=== PATIENT | male | born 1950 | race Caucasian/White ===

== ENCOUNTER 2020-11-21 08:21 | Outpatient (REF) | payer MEDICARE, OTHER, SELFPAY ==
[2020-11-21 11:04] LABS: MANUAL DIFF FLAG NO
[2020-11-21 11:08] LABS: Basophils Percent Auto 0.8 % (0-2); Eosinophils Absolute Auto 0.3 X10*3/uL (0.0-0.4); Eosinophils Percent Auto 6.4 % (0-4); Hematocrit 40.7 % (42-52); Hemoglobin 13.6 g/dl (14.0-18.0); Imm Gran Abs Auto 0.01 X10*3/uL (0.00-0.03); Imm Gran Pct Auto 0.2 % (0.0-0.4); Lymphocytes Absolute Auto 1.6 X10*3/uL (1.2-4.9); Lymphocytes Percent Auto 31.8 % (20-40); Mean Corpuscular HGB Conc 33.4 g/dl (31.0-36.0); Mean Corpuscular Hemoglobin 35.4 pg (27.0-33.0); Mean Platelet Volume 9.7 fL (9.4-12.4); Monocytes Absolute Auto 0.5 X10*3/uL (0.1-1.2); Monocytes Percent Auto 10.1 % (2-11); Neutrophils Absolute Auto 2.5 X10*3/uL (2.0-8.3); Neutrophils Percent Auto 50.7 % (45-73); Platelet Count 226 X10*3/uL (160-400); Red Blood Count 3.84 X10*6/uL (4.60-5.80); Red Cell Distribution Width 14.5 % (11.0-16.0); White Blood Count 4.9 X10*3/uL (4.8-10.8)
[2020-11-21 12:07] LABS: Alanine Aminotransferase 7 U/L (0-40); Albumin Level 4.2 g/dL (3.5-5.0); Alkaline Phosphatase 60 U/L (39-117); Anion Gap 15 (12-20); Aspartate Amino Transferase 16 U/L (5-37); Bilirubin Direct 0.4 mg/dL (0.0-0.5); Bilirubin Total 1.1 mg/dL (0.0-1.0); Blood Urea Nitrogen 25 mg/dL (9-16); Calcium 9.7 mg/dL (8.4-10.2); Carbon Dioxide 26 mmol/L (22-29); Chloride 104 mmol/L (96-108); Cholesterol 182 mg/dL; Estimated Glomerular Filt Rate > 60; Glucose Fasting 91 mg/dL (60-99); HDL Cholesterol 54 mg/dL; LDL Cholesterol Calculated 101 mg/dl; Potassium 4.2 mmol/L (3.3-5.1); Sodium 141 mmol/L (135-145); Total Protein 7.5 g/dL (6.5-8.0); Triglycerides 137 mg/dL
[2020-11-21 12:11] LABS: T4 Thyroxine 6.9 ug/dL (4.5-12.0); Thyroid Stimulating Hormone 0.92 uIU/mL (0.32-4.0)
[2020-11-21 12:41] LABS: Folate 6.9 ng/mL (> or = 4.0); Vitamin B12 522 pg/mL (200-900)
== END 2020-11-21 08:22 | disposition home or self-care (01) ==
LOC: HO.WFDLDS 08:21
PROVIDERS: PCP Internal Medicine; Visit Provider Internal Medicine
DX: I10 Essential (primary) hypertension (principal); E78.00 Pure hypercholesterolemia, unspecified; Z72.0 Tobacco use
CPT/HCPCS: 36415; 80053; 80061; 80076; 82248; 82607; 82746; 84436; 84443; 85025

== ENCOUNTER 2021-01-18 11:48 | Day surgery (SDC) | payer MEDICARE, OTHER, SELFPAY ==
--- NOTE | 2021-01-17 09:44 | HO.ANESPROP2 ---
HPI - Anesthesia Eval Consult details Narrative: 70yo M for Colonoscopy History of DI PMFSH Active Problems Active Problems: All Active Problems (Updated 01/11/21 @ 15:52 by Tori Blanchard) Medicare annual wellness visit, initial (Acute) Colon cancer screening (Acute) Guaiac + stool (Acute) Anemia (Acute) Tobacco abuse (Acute) COPD (chronic obstructive pulmonary disease) (Acute) Depression (Acute) Hypercholesterolemia (Acute) Hypertension (Acute) Past Medical History Medical History Abdominal wall hernia COPD (chronic obstructive pulmonary disease) Depression History of difficult intubation Hypercholesterolemia Hypertension Renal calculi Smoker Tobacco abuse Vitamin D deficiency Family History Family History Mother No problems noted. Father No problems noted. Surgical History Surgical History History of cataract surgery History of incisional hernia repair History of inguinal hernia repair S/P laparoscopic-assisted sigmoidectomy S/P surgical removal of pilonidal cyst Social History Social History Alcohol intake: current Alcohol intake frequency: a few times a week Patient Tobacco Use Status: Current everyday Tobacco user Cigarettes Per Day: 10 Use of substances other than those prescribed or required for medical reasons: No Have you been hit, kicked, punched, or otherwise hurt by someone within the past year? If so, by whom?: No Are you DNR?: No Advance Directives: No Advance Directives Information Provided: Yes Advance Directives on File: No Recently lost weight without trying: No Meds Allergies Allergy/AdvReac Type Severity Reaction Status Date / Time No Known Allergies Allergy Verified 01/18/21 12:28 [No Known Allergies*] Home Medications Medication Instructions Recorded Confirmed Last Taken Type B-complex with vitamin C 1 tab PO DAILY 11/25/20 01/11/21 Unknown History ascorbate calcium (vitamin C) 500 500 mg PO DAILY 11/25/20 01/11/21 Unknown History mg tablet atorvastatin 10 mg tablet 10 mg PO DAILY 11/25/20 01/11/21 Unknown History cholecalciferol (vitamin D3) 50 50 mcg PO DAILY 11/25/20 01/11/21 Unknown History mcg (2,000 unit) capsule Exam Exam Date and Time: January 17, 2021 0916 Pertinent Lab Results Pertinent Lab Results: Laboratory Tests 11/21/20 11/21/20 08:33 08:33 WBC 4.9 Hgb 13.6 L Hct 40.7 L Plt Count 226 Sodium 141 Potassium 4.2 Chloride 104 Carbon Dioxide 26 BUN 25 H Creatinine 0.98 Assessment and Plan Assessment Anesthesia Assessment: Chart Reviewed
--- NOTE | 2021-01-18 07:32 | MHC.SHP ---
Pre-Procedural Eval Section A The patient is an INPATIENT: No Changes since office visit: No Cold of Flu in the past 2 weeks, No New Medical Problems, No Changes in Medication and No Patient answered all questions The History & Physical has been completed within 30 days and I have reviewed it.: Yes Section B Chief Complaint: Screening Allergies: Allergies Allergy/AdvReac Type Severity Reaction Status Date / Time No Known Allergies Allergy Verified 01/11/21 15:53 [No Known Allergies*] Plan I have reviewed the history and physical and performed a pertinent physical examination on my patient. No changes have occurred unless specified.
[2021-01-18 12:00] VITALS: BP 159/67; PULSE 71; RESP 18; TEMP 37.1; O2SAT 97; BMI 26.2
[2021-01-18] MEDS: Lactated Ringers 1,000 ML 100 ML IVCONT (12:22)
[2021-01-18] MEDS: Albuterol Sulfate (0.083%) 2.5 MG/3 ML VIAL.NEB INHALE (12:23)
--- NOTE | 2021-01-18 12:23 | HO.ANESPROP2 ---
[facility] Active Problems Active Problems: All Active Problems (Updated 01/11/21 @ 15:52 by Tori Blanchard) Medicare annual wellness visit, initial (Acute) Colon cancer screening (Acute) Guaiac + stool (Acute) Anemia (Acute) Tobacco abuse (Acute) COPD (chronic obstructive pulmonary disease) (Acute) Depression (Acute) Hypercholesterolemia (Acute) Hypertension (Acute) Past Medical History Medical History Abdominal wall hernia COPD (chronic obstructive pulmonary disease) Depression History of difficult intubation Hypercholesterolemia Hypertension Renal calculi Smoker Tobacco abuse Vitamin D deficiency Family History Family History Mother No problems noted. Father No problems noted. Surgical History Surgical History History of cataract surgery History of incisional hernia repair History of inguinal hernia repair S/P laparoscopic-assisted sigmoidectomy S/P surgical removal of pilonidal cyst Social History Social History Alcohol intake: current Alcohol intake frequency: a few times a week Patient Tobacco Use Status: Current everyday Tobacco user Cigarettes Per Day: 10 Use of substances other than those prescribed or required for medical reasons: No Have you been hit, kicked, punched, or otherwise hurt by someone within the past year? If so, by whom?: No Are you DNR?: No Advance Directives: No Advance Directives Information Provided: Yes Advance Directives on File: No Recently lost weight without trying: No Meds Allergies Allergy/AdvReac Type Severity Reaction Status Date / Time No Known Allergies Allergy Verified 01/11/21 15:53 [No Known Allergies*] Active Medications: Current Medications Generic Name Dose Route Start Last Admin Trade Name Freq PRN Reason Stop Dose Admin Albuterol Sulfate 2.5 mg 01/18/21 11:53 Albuterol Sulfate (0.083%) 2.5 Mg/3 Ml Vial.Neb INHALE ONCE PRN Shortness of Breath/Wheezing Lactated Ringer's 1,000 mls @ 100 mls/hr 01/18/21 12:00 01/18/21 12:22 Lr IVCONT 100 mls/hr .Q10H ODILIA Administration Home Medications Medication Instructions Recorded Confirmed Last Taken Type B-complex with vitamin C 1 tab PO DAILY 11/25/20 01/11/21 Unknown History ascorbate calcium (vitamin C) 500 500 mg PO DAILY 11/25/20 01/11/21 Unknown History mg tablet atorvastatin 10 mg tablet 10 mg PO DAILY 11/25/20 01/11/21 Unknown History cholecalciferol (vitamin D3) 50 50 mcg PO DAILY 11/25/20 01/11/21 Unknown History mcg (2,000 unit) capsule Exam Exam Date and Time: January 18, 2021 1223 Height,Weight and Vital Signs: Height 5 ft 9 in Weight 80.739 kg Last Vital Signs Temp 98.7 F 01/18/21 12:00 Pulse 71 01/18/21 12:00 Resp 18 01/18/21 12:00 BP 159/67 H 01/18/21 12:00 Pulse Ox 97 01/18/21 12:00 Airway Mallampati Class: III TM Dist: >3cm Neck ROM: Full Heart: RRR Lungs: crackles
[2021-01-18 12:25] VITALS: PULSE 67; O2SAT 16
[2021-01-18 13:46] VITALS: BP 101/54; PULSE 16; RESP 16; TEMP 36.1; O2SAT 98
--- NOTE | 2021-01-18 13:49 | P.BOP_ITS ---
Brief Operative Note Date of Service: 01/18/21 Pre-op diagnosis: anemia, heme pos Post-op diagnosis: same (colon polyps) Procedure: colonoscopy Surgeon: Jet Alvarez Anesthesia: MAC Was an Clerical And Administrative Workers used for this Procedure?: No Estimated blood loss (mL): 2 Pathology: other (colon polyps) Condition: stable Disposition: PACU
[2021-01-18 14:01] VITALS: BP 121/58; PULSE 60; RESP 17; TEMP 36.2; O2SAT 97
--- NOTE | 2021-01-18 23:57 | OP_ITS ---
SURGEON: Jet Alvarez MD INDICATIONS: Hemoccult-positive stools, anemia, and prior history of colon polyps. PREOPERATIVE DIAGNOSIS: POSTOPERATIVE DIAGNOSIS: PROCEDURE PERFORMED: Colonoscopy to the terminal ileum with snare polypectomy and biopsy. ESTIMATED BLOOD LOSS: COMPLICATIONS: ANESTHESIA: ASSISTANTS: SPECIMENS: MEDICATIONS: Monitored anesthesia care. DESCRIPTION OF PROCEDURE: History and physical performed. The risks and benefits of the procedure were explained to the patient. Informed consent was obtained. The patient was placed in left lateral decubitus position. A digital rectal exam was performed and was found to be normal. The Olympus pediatric video colonoscope was introduced into the rectum and advanced to the cecum without difficulty. The cecum was identified by transillumination, palpation, and identification of ileocecal valve. Examination was performed and the scope was removed. He tolerated the procedure well and was taken to recovery area in stable condition. FINDINGS: The terminal ileum was normal. The visualized colonic mucosa was normal. The quality of prep was good. There were multiple colonic polyps, which were removed using a combination of snare and biopsy. It is located as follows: At 70 cm, were 2 polyps that were snared. At 60 cm, there were 2 polyps that were snared. At 45 cm, there were 2 polyps that were snared. At 30 cm, there was 1 polyp, which was removed with biopsy forceps. Three rectal polyps were removed with a snare, all polyps measured less than 10 mm. There were several other hyperplastic appearing polyps in the rectosigmoid that were not removed. There appeared to be a patent anastomosis at 20 cm consistent with prior history of surgical resection of a polyp. There was mild diverticulosis of the sigmoid. Retroflexed examination also showed large internal hemorrhoids. IMPRESSION: Colon polyps. RECOMMENDATION: Follow up the biopsy results. MD DARRYL Alvarez/PASHA / [id number]
== END 2021-01-18 14:19 | disposition home or self-care (01) ==
PROVIDERS: PCP Internal Medicine; Visit Provider Internal Medicine Gastroenterology
PROC: 0DJD8ZZ Inspection of Lower Intestinal Tract, Via Natural or Artificial Opening Endoscopic (ICD-10-PCS; CPT 45378; principal; 2021-01-18 13:00)
DX: R19.5 Other fecal abnormalities (principal); D64.9 Anemia, unspecified; Z86.010 Personal history of colon polyps; D12.4 Benign neoplasm of descending colon; D12.5 Benign neoplasm of sigmoid colon; K62.1 Rectal polyp; K57.30 Diverticulosis of large intestine without perforation or abscess without bleeding; K64.8 Other hemorrhoids; J44.9 Chronic obstructive pulmonary disease, unspecified; I10 Essential (primary) hypertension; E55.9 Vitamin D deficiency, unspecified; F17.210 Nicotine dependence, cigarettes, uncomplicated; Z79.899 Other long term (current) drug therapy
CPT/HCPCS: 45385; 45380; 88305; 94640

== ENCOUNTER 2023-01-31 10:22 | Outpatient (REF) | payer MEDICARE, OTHER, SELFPAY | END 2023-01-31 10:23 | disposition home or self-care (01) | LOC: HO.WFDLDS 10:22 | PROVIDERS: Visit Provider Internal Medicine | DX: D64.9 Anemia, unspecified (principal); E78.00 Pure hypercholesterolemia, unspecified | CPT/HCPCS: 36415; 80053; 80061; 82607; 82728; 82746; 83540; 84439; 84443; 85025; 85045 ==

== ENCOUNTER 2023-02-07 09:28 | Outpatient (AMB) | payer MEDICARE, OTHER, SELFPAY ==
--- NOTE | 2023-02-07 09:33 | A.OFFPC_ITS ---
Vital Signs 02/07/23 09:34 Height 5 ft 9 in Weight 190 lb BMI 28.1 BP 130/76 Blood Pressure Location Lt brachial Position Sitting Pulse 74 Pulse Source Pulse Oximeter Pulse Oximetry (%) 98 Oxygen Delivery Method Room Air Intake Visit Reasons: HTN, Cholesterol Allergies No Known Allergies [No Known Allergies*] Allergy (Verified 02/07/23 09:34) Tobacco use date assessed: 11/05/22 Fall risk assessment: No Falls in past year Last assessed Fall Risk: 02/07/23 Dental Screening Dental Screen Date: 02/07/23 Did you have a dental visit in the last 12 months?: Yes Did you have a dental problem in the last 6 months where you did not have access to dental care?: No Was dental information given to patient?: Patient has dentist HPI HTN, Cholesterol HPI Details 72-year-old overweight male smoker with a history of hypertension hypercholesterolemia COPD recurrent major depression last seen in October 2019 patient is here for follow-up. L eye cannot see but called Dr. Rodriguez but 15 months - so has a [place] [facility] surgeon. [facility] Medical History (Updated 02/07/23 @ 09:47 by Bozena Cobb MD) Abdominal wall hernia Colon cancer screening COPD (chronic obstructive pulmonary disease) Guaiac + stool History of difficult intubation Hypercholesterolemia Hypertension Medicare annual wellness visit, initial Renal calculi Smoker Tobacco abuse Tubular adenoma of colon Vitamin D deficiency Surgical History History of cataract surgery History of incisional hernia repair History of inguinal hernia repair S/P laparoscopic-assisted sigmoidectomy S/P surgical removal of pilonidal cyst Family History (Updated 11/27/21 @ 13:02 by THERESA Zuniga) Mother No problems noted. Father No problems noted. Social History (Updated 11/27/21 @ 13:31 by Bozena Cobb MD) Housing: House Alcohol intake: current Alcohol intake frequency: a few times a week Patient Tobacco Use Status: Current everyday Tobacco user Tobacco use type: Cigarette Cigarettes Per Day: 10 e-Cigarette/Vaping Use: Never Used Second Hand Smoke Exposure: No Current occupational status: retired Cognitive needs: No Hearing needs: No Vision needs: Yes Questionnaire PHQ-9 Over the last 2 weeks, how often have you been bothered by any of the following problems? 1. Little interest or pleasure in doing things: not at all 2. Feeling down, depressed, or hopeless: not at all 3. Trouble falling or staying asleep, or sleeping too much: not at all 4. Feeling tired or having little energy: not at all 5. Poor appetite or overeating: not at all 6. Feeling bad about yourself - or that you are a failure or have let yourself or your family down: not at all 7. Trouble concentrating on things, such as reading the newspaper or watching television: not at all 8. Moving or speaking so slowly that other people could have noticed. Or the opposite - being so fidgety or restless that you have been moving around a lot more than usual: not at all 9. Thoughts that you would be better off or of hurting yourself in some way: not at all Total score: 0 Depression Screening Interpretation: Negative Source: Developed by Drs. Krishan Antony, Lissett Odom, Kurt Salmeron and colleagues, with an educational maria fernanda from [email or web address]. Thrive Questionnaire Date Thrive assessed: 11/05/22 AUDIT C Alcohol Use Questionnaire (AUDIT-C) 1. How often do you have a drink containing alcohol?: 2-3 times a week 2. How many drinks containing alcohol do you have on a typical day when you are drinking?: 1 or 2 3. How often do you have six or more drinks on one occasion?: Never Total Score: 3 SHAMEKA-7 AMB Questionnaire SHAMEKA-7 Date SHAMEKA - 7 assessed: 11/05/22 Source: Developed by Drs. Krishan Antony, Lissett Odom, Kurt Salmeron and colleagues, with an educational maria fernanda from [email or web address]. Physical exam (Primary Care) Vital Signs: Last Vital Signs Pulse 74 02/07/23 09:34 BP 130/76 02/07/23 09:34 Pulse Ox 98 02/07/23 09:34 Oxygen Delivery Method Room Air 02/07/23 09:34 BMI result Body Mass Index 28.1 Tobacco/Smoking Status: Tobacco use Status Tobacco use date assessed 11/05/22 02/07/23 09:39 Patient Tobacco Use Status Current everyday Tobacco 02/07/23 09:39 Tobacco use type Cigarette 02/07/23 09:39 e-Cigarette/Vaping Use Never Used 02/07/23 09:39 PHQ-9: PHQ-9 Score PHQ-9: Total score 0 02/07/23 09:39 Depression Screening Interpretation: Negative Thrive Assessment: Date of Thrive Assessment Date Thrive assessed 11/05/22 02/07/23 09:39 Const General: alert; No acute distress Eyes Conjunctivae: conjunctivae normal Resp Auscultation: wheezes Cardio Rate: regular rate Rhythm: regular rhythm GI Inspection: Yes normal to inspection Extrem General: Yes normal to inspection and No edema Assessment and Plan Assessment & Plan (1) Tobacco abuse: Code(s): Z72.0 - Tobacco use Plan: Patient is strongly advised to stop! (2) Hypertension: Code(s): I10 - Essential (primary) hypertension Qualifiers: Hypertension type: essential hypertension Qualified Code(s): I10 - Essential (primary) hypertension Plan: Continue with blood pressure medication. Decrease salt intake and exercise patient is taking amlodipine olmesartan 10/40 once a day and hydrochlorothiazide (3) Hypercholesterolemia: Code(s): E78.00 - Pure hypercholesterolemia, unspecified Plan: Avoid fried foods, chicken skin, eggs, butter margarine, pastries and meat. Be it pork or beef they have a lot of cholesterol LDL goal of less than 130 and triglyceride of less than 150 patient is on atorvastatin 10 mg once a day (4) COPD (chronic obstructive pulmonary disease): Code(s): J44.9 - Chronic obstructive pulmonary disease, unspecified Qualifiers: COPD type: emphysema Emphysema type: panlobular Qualified Code(s): J4 3.1 - Panlobular emphysema Plan: Patient is advised strongly to stop smoking! does not need inhaler for now (5) Anemia: Code(s): D64.9 - Anemia, unspecified Plan: Resolved has macrocytosis (6) Recurrent major depression: Code(s): F33.9 - Major depressive disorder, recurrent, unspecified (7) Low vitamin B12 level: Code(s): E53.8 - Deficiency of other specified B group vitamins Plan: Vitamin B12 1000 mcg once a day Medications: Refilled atorvastatin 10 mg PO DAILY 90 tabs 3RF Coding Level of Care Code Est Pt Level 4 (96714) Diagnoses Tobacco abuse Z72.0 Hypertension I10 Hypertension type: essential hypertension Hypercholesterolemia E78.00 COPD (chronic obstructive pulmonary disease) J43.1 COPD type: emphysema Emphysema type: panlobular Anemia D64.9 Recurrent major depression F33.9 Low vitamin B12 level E53.8
[2023-02-07 09:34] VITALS: BP 130/76; PULSE 74; O2SAT 98; BMI 28.1
== END 2023-02-07 10:02 | disposition home or self-care (01) ==
PROVIDERS: Visit Provider Internal Medicine
DX: I10 Essential (primary) hypertension (principal); J43.1 Panlobular emphysema; F33.9 Major depressive disorder, recurrent, unspecified; Z72.0 Tobacco use; E78.00 Pure hypercholesterolemia, unspecified; D64.9 Anemia, unspecified; E53.8 Deficiency of other specified B group vitamins
CPT/HCPCS: 99214

== ENCOUNTER 2023-05-17 12:37 | Outpatient (AMB) | payer MEDICARE, OTHER, SELFPAY ==
--- NOTE | 2023-05-17 12:34 | A.OFFPC_ITS ---
Intake Visit Reasons: Cold Symptoms Clerk Analyst Required: No Accompanied by: Self / Same As Patient Allergies No Known Allergies [No Known Allergies*] Allergy (Verified 05/17/23 12:35) Tobacco use date assessed: 11/05/22 Fall risk assessment: No Falls in past year Last assessed Fall Risk: 05/17/23 HPI Cold Symptoms HPI Details 72-year-old overweight male smoker with hypertension hypercholesterolemia COPD depression coming in for follow-up. concern non skin cancer -seeing derm - leg and middle back. doing better ,had covid states 4-5 days ago and without antiviral doing better [facility] Medical History (Updated 05/17/23 @ 12:50 by Bozena Cobb MD) Tubular adenoma of colon History of difficult intubation Smoker Guaiac + stool Colon cancer screening Medicare annual wellness visit, initial Renal calculi Abdominal wall hernia Tobacco abuse COPD (chronic obstructive pulmonary disease) Vitamin D deficiency Hypercholesterolemia Hypertension Surgical History History of incisional hernia repair S/P laparoscopic-assisted sigmoidectomy History of cataract surgery S/P surgical removal of pilonidal cyst History of inguinal hernia repair Family History Mother No problems noted. Father No problems noted. Social History Housing: House Alcohol intake: current Alcohol intake frequency: a few times a week Patient Tobacco Use Status: Current everyday Tobacco user Tobacco use type: Cigarette Cigarettes Per Day: 10 e-Cigarette/Vaping Use: Never Used Second Hand Smoke Exposure: No Current occupational status: retired Cognitive needs: No Hearing needs: No Vision needs: Yes Questionnaire Thrive Questionnaire Date Thrive assessed: 11/05/22 SHAMEKA-7 AMB Questionnaire SHAMEKA-7 Date SHAMEKA - 7 assessed: 11/05/22 Source: Developed by Drs. Krishan Antony, Lissett Odom, Kurt Salmeron and colleagues, with an educational maria fernanda from [employer] Physical exam (Primary Care) Tobacco/Smoking Status: Tobacco use Status Tobacco use date assessed 11/05/22 05/17/23 12:36 Patient Tobacco Use Status Current everyday Tobacco 05/17/23 12:36 Tobacco use type Cigarette 05/17/23 12:36 e-Cigarette/Vaping Use Never Used 05/17/23 12:36 Thrive Assessment: Date of Thrive Assessment Date Thrive assessed 11/05/22 05/17/23 12:36 Telehealth Telehealth Location of provider rendering services: practice address Location of patient: address on file Patient Identification confirmed using: Name, : Yes Telehealth method: voice only Patient verbally consented to treatment: Yes Patient verbally consented to billing insurance company: Yes Patient informed of any privacy concerns related to visit: Yes Minutes spent on Phone/Video with Pt.: 25 Assessment and Plan Assessment & Plan (1) COVID-19 virus infection: Comment: 05/15/2023 Code(s): U07.1 - COVID-19 Plan: Doing better without antiviral. Increase oral fluids discussed about quarantine for 5 days and may go out after but has to wear a mask for 5 days more (2) Tobacco abuse: Code(s): Z72.0 - Tobacco use Plan: Patient continue to advised to stop exclamation (3) COPD (chronic obstructive pulmonary disease): Code(s): J44.9 - Chronic obstructive pulmonary disease, unspecified Qualifiers: COPD type: emphysema Emphysema type: panlobular Qualified Code(s): J43.1 - Panlobular emphysema Plan: No need for inhalers controlled Coding Level of Care Code Tele Est Pt Level 4 (23478) Diagnoses COVID-19 virus infection U07.1 Tobacco abuse Z72.0 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 Emphysema type: panlobular
== END 2023-05-17 13:16 | disposition home or self-care (01) ==
LOC: HO.HMGH 12:37
PROVIDERS: PCP Internal Medicine; Visit Provider Internal Medicine
DX: U07.1 COVID-19 (principal); Z72.0 Tobacco use; J43.1 Panlobular emphysema
CPT/HCPCS: 99443

== ENCOUNTER 2023-06-07 12:10 | Outpatient (REF) | payer MEDICARE, OTHER, SELFPAY ==
--- NOTE | ~2023-06-07 | XR_ITS ---
EXAMINATION: XR HIP, RIGHT CLINICAL INFORMATION: Pain in right hip COMPARISON: None available. TECHNIQUE: Two views of the right hip. FINDINGS: No fracture, dislocation or lytic process is seen. Alignment is anatomic. There is mild narrowing of the cartilage space of the right hip. There is extensive vascular calcification indicative of atherosclerotic disease. The pubis symphysis is normal. There are mild degenerative changes of the right sacroiliac joint. A few metallic coils are seen in the right lower quadrant. XR/XR hip RT min 2V IMPRESSION: Mild osteoarthritis of the right hip.
== END 2023-06-07 12:11 | disposition home or self-care (01) ==
LOC: HO.XRAY 12:10
PROVIDERS: PCP Internal Medicine; Visit Provider Internal Medicine
DX: M25.551 Pain in right hip (principal)
CPT/HCPCS: 73502

== ENCOUNTER 2023-06-26 12:20 | Outpatient (AMB) | payer MEDICARE, OTHER, SELFPAY ==
--- NOTE | 2023-06-26 12:20 | MHC.OFFVIS ---
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 The patient states that several months ago he twisted his right hip while riding his lawnmower. Over the last few weeks his discomfort has improved significantly. He does not take any medicines for his discomfort. He denies any weakness in either lower extremity. Allergies No Known Allergies [No Known Allergies*] Allergy (Verified 05/17/23 12:35) Medication List - Last Reconciled 06/26/23 by Oscar Pak MD amlodipine-olmesartan 10-40 mg 1 tab PO DAILY ascorbate calcium (vitamin C) 500 mg PO DAILY atorvastatin 10 mg PO DAILY B-complex with vitamin C 1 tab PO DAILY cholecalciferol (vitamin D3) 50 mcg PO DAILY hydrochlorothiazide 25 mg PO DAILY [facility] Medical History Tubular adenoma of colon History of difficult intubation Smoker Guaiac + stool Colon cancer screening Medicare annual wellness visit, initial Renal calculi Abdominal wall hernia Tobacco abuse COPD (chronic obstructive pulmonary disease) Vitamin D deficiency Hypercholesterolemia Hypertension Surgical History History of incisional hernia repair S/P laparoscopic-assisted sigmoidectomy History of cataract surgery S/P surgical removal of pilonidal cyst History of inguinal hernia repair Family History Mother No problems noted. Father No problems noted. Social History Housing: House Alcohol intake: current Alcohol intake frequency: a few times a week Patient Tobacco Use Status: Current everyday Tobacco user Tobacco use type: Cigarette Cigarettes Per Day: 10 e-Cigarette/Vaping Use: Never Used Second Hand Smoke Exposure: No Current occupational status: retired Cognitive needs: No Hearing needs: No Vision needs: Yes Physical Exam Vital Signs: BMI result Body Mass Index 28.1 Const Other: Well-nourished well-developed very friendly male awake alert and oriented x3 in no acute distress Extrem Other: Bilateral lower extremity examination shows good capillary refill, no skin lesions noted, normal sensation light touch Right hip examination shows full range of motion when compared to his left hip, mild tenderness over his bursa, no overlying skin lesions Results Reviewed Results Reviewed: X-rays of the patient's right hip show mild diffuse joint space narrowing, no acute bony abnormalities Assessment & Plan Assessment & Plan (1) Bursitis of hip, right: Code(s): M70.71 - Other bursitis of hip, right hip Plan: Mr. Vega presents with intermittent discomfort along the lateral aspect of his right hip most likely due to greater trochanteric bursitis. I had a lengthy discussion with the patient regarding the treatment options. At this point the patient's symptoms are tolerable to him. We will hold off on a cortisone injection. He will continue with his home exercise program. He will follow up with me on an as-needed basis should his symptoms worsen in any way. Feel free to call me at any time should questions regarding his orthopedic management arise. Thank you very much for asking me to see this very friendly gentleman. Plan I spent 22 minutes in reviewing the patient's records and imaging studies, seeing the patient and documenting in the medical record. Coding Level of Care Code New Pt Level 2 (40722) Diagnoses Bursitis of hip, right M70.71
[2023-06-26 12:21] VITALS: BMI 28.1
== END 2023-06-26 12:42 | disposition home or self-care (01) ==
PROVIDERS: PCP Internal Medicine; Visit Provider Orthopaedic Surgery
DX: M70.71 Other bursitis of hip, right hip (principal)
CPT/HCPCS: 99202

== ENCOUNTER → 2023-06-26 12:20 | Outpatient (BNVA) | payer MEDICARE, OTHER, SELFPAY | PROVIDERS: PCP Internal Medicine; Visit Provider Orthopaedic Surgery | DX: M70.71 Other bursitis of hip, right hip (principal) | CPT/HCPCS: 99202 ==

== ENCOUNTER 2023-10-31 12:17 | Outpatient (AMB) | payer MEDICARE, OTHER, SELFPAY ==
[2023-10-31 12:31] VITALS: BP 138/60; PULSE 64; O2SAT 94; BMI 28.8
--- NOTE | 2023-10-31 12:31 | A.OFFVIS_ITS ---
Intake Vital Signs 10/31/23 12:31 Height 5 ft 9 in Weight 195 lb 0.2 oz BMI 28.8 BP 138/60 Blood Pressure Location Lt brachial Position Sitting Pulse 64 Pulse Source Pulse Oximeter Pulse Oximetry (%) 94 Oxygen Delivery Method Room Air Intake Visit Reasons: SWV [id number] Allergies No Known Allergies [No Known Allergies*] Allergy (Verified 10/31/23 12:37) Medication List - Last Reconciled 10/31/23 by Bozena Cobb MD amlodipine-olmesartan 10-40 mg 1 tab PO DAILY ascorbate calcium (vitamin C) 500 mg PO DAILY atorvastatin 10 mg PO DAILY B-complex with vitamin C 1 tab PO DAILY cholecalciferol (vitamin D3) 50 mcg PO DAILY colchicine take 2 at the first sign of gout attack and may repeat 0.6 mg 1 hour after orally; hydrochlorothiazide 25 mg PO DAILY HPI SWV [id number] HPI Details 73-year-old overweight male smoker with a history of COPD hypertension hypercholesterolemia recurrent major depression coming in for annual well visit last seen in April 2023 with COVID-19 infection. Patient's colonoscopy last done in December 2020. Patient has been follow-up with orthopedics seen in May 2023 for the right hip pain diagnosis of bursitis of the right hip will continue with exercise. vision problem , skin back and back of leg- seen Dr. Love- sent to [facility] 05/2023- has leg sweling, ? gout. R ankle pain- swelling- seen [place] was given a shot Vitamin b 3 PFSH Medical History Tubular adenoma of colon History of difficult intubation Smoker Guaiac + stool Colon cancer screening Medicare annual wellness visit, initial Renal calculi Abdominal wall hernia Tobacco abuse COPD (chronic obstructive pulmonary disease) Vitamin D deficiency Hypercholesterolemia Hypertension Surgical History History of incisional hernia repair S/P laparoscopic-assisted sigmoidectomy History of cataract surgery S/P surgical removal of pilonidal cyst History of inguinal hernia repair Family History Mother No problems noted. Father No problems noted. Social History (Updated 10/31/23 @ 12:53 by Bozena Cobb MD) Housing: House Alcohol intake: current Alcohol intake frequency: a few times a week Comment: 2 Q night Patient Tobacco Use Status: Current everyday Tobacco user Tobacco use type: Cigarette Cigarettes Per Day: 10 Years Smoked: since 18 years old e-Cigarette/Vaping Use: Never Used Second Hand Smoke Exposure: No Current occupational status: retired Cognitive needs: No Hearing needs: No Vision needs: Yes Questionnaire Medicare Wellness Checkup [age] What gender do you identify with?: male During the past 4 weeks, how much have you been bothered by emotional problems such as feeling anxious, depressed, irritable, sad or downhearted, and blue?: not at all During the past 4 weeks, has your physical & emotional health limited your social activities with family, friends, neighbors, or groups?: moderately During the past 4 weeks, how much bodily pain have you generally had?: no pain During the past 4 weeks, was someone available to help you if you needed & wanted help?: yes, as much as I wanted During the past 4 weeks, what was the hardest physical activity you could do for at least 2 minutes?: moderate Can you get to places out of walking distance without help? (For eg., can you travel alone on buses, taxis or drive your car?): Yes Can you go shopping for groceries or clothes without someone's help?: Yes Can you prepare your own meals?: Yes Can you do your housework without help?: Yes Because of any health problems, do you need the help of another person with your personal care needs such as eating, bathing, dressing or getting around the house?: No Can you handle your own money without help?: Yes During the past 4 weeks, how would you rate your health in general?: very good During the past 4 weeks how have things been going for you?: pretty well Are you having difficulties driving your car?: no Do you always fasten your seat belt when you are in a car?: no During past 4 weeks, have you been bothered by the following: never: Falling or dizzy when standing up, Sexual problems?, Trouble eating well?, Teeth or denture problems?, Problems using the telephone? and Tiredness or fatigue? Have you fallen 2 or more times in the past year?: No Are you afraid of falling?: No Are you a smoker?: yes, and I might quit During the past 4 weeks, how many drinks of wine, beer, or other alcoholic bever ages did you have?: 10 or more per week Do you exercise for about 20 minutes 3 or more times a week?: no, I usually do not exercise this much Have you been given information to help with the following?: no: Hazards in your house that might hurt you? and no: Keeping track of your medications? How often do you have trouble taking medicines the way you have been told to take them?: I always take medicine as prescribed How confident are you that you can control & manage most of your health problems?: somewhat confident What is your race?: White PHQ-9 Over the last 2 weeks, how often have you been bothered by any of the following problems? 1. Little interest or pleasure in doing things: not at all 2. Feeling down, depressed, or hopeless: not at all 3. Trouble falling or staying asleep, or sleeping too much: not at all 4. Feeling tired or having little energy: not at all 5. Poor appetite or overeating: not at all 6. Feeling bad about yourself - or that you are a failure or have let yourself or your family down: not at all 7. Trouble concentrating on things, such as reading the newspaper or watching television: not at all 8. Moving or speaking so slowly that other people could have noticed. Or the opposite - being so fidgety or restless that you have been moving around a lot more than usual: not at all 9. Thoughts that you would be better off or of hurting yourself in some way: not at all Total score: 0 Depression Screening Interpretation: Negative Depression Screening Done: Yes Source: Developed by Drs. Krishan Antony, Lissett Odom, Kurt Salmeron and colleagues, with an educational maria fernanda from [employer]. Review of Systems Const Denies poor appetite and Denies weakness Eyes Denies no additional complaints ENT Reports Normal hearing present, Denies dizziness, Denies nasal congestion, Denies tinnitus and Denies sore throat Card Denies chest pain, Denies syncope, Denies rapid heart rate and Denies dyspnea Resp Denies cough and Denies dyspnea GI Denies change in stool character, Reports constipation, Denies diarrhea, Denies nausea and Denies vomiting Denies dysuria and Denies urinary frequency Neuro Reports Normal hearing present, Denies confusion, Denies dizziness, Denies syncope and Denies weakness Psych Denies confusion Physical Exam Vital Signs: Oxygen Delivery Method Room Air 10/31/23 12:31 Const General: No confusion Orientation/consciousness: No confusion HEENT Head: Yes normocephalic Ears: external ears normal and TM's normal bilaterally Face and sinus: Yes normal facial exam Mouth: moist mucous membranes Throat: Yes tonsils normal Eyes Conjunctivae: conjunctivae normal Pupils: Equal, round and reactive pupils present and Pupil accommodation reflex normal Direct Ophthalmoscopy: normal light reflex Neck Neck: No lymphadenopathy Thyroid: Thyroid normal Chest Chest palpation & inspection: normal inspection of the chest Resp Effort & Inspection: normal respiratory effort and no audible wheezes Auscultation: clear to auscultation bilaterally, no crackles, no wheezes and lung sounds not diminished Cardio Rate: regular rate Rhythm: regular rhythm Peripheral pulses: radial pulses present and dorsalis pedis present GI Palpation (GI): no masses Auscultation: normal bowel sounds and normoactive bowel sounds Rectal Exam - Male: Yes deferred Skin General skin exam: no rashes or lesions noted Rashes: no rashes Neuro General: No confusion Cranial nerves: Yes Equal, round and reactive pupils present and Yes Normal hearing present Cognition (Neuro): normal cognition Gait exam (Neuro): Normal gait present Motor exam (neuro): 5/5 motor strength present throughout Deep tendon reflexes (DTR's): Right brachioradialis reflex intensity grade: 2+, Left brachioradialis reflex intensity grade: 2+, Right patellar reflex intensity grade: 2+ and Left patellar reflex intensity grade: 2+ Extrem General: No edema Assessment & Plan Assessment & Plan (1) Encounter for subsequent annual wellness visit (AWV) in Medicare patient: Code(s): Z00.00 - Encounter for general adult medical examination without abnormal findings Plan: Keep well hydrated, eat healthy and keep active (2) Bursitis of hip, right: Code(s): M70.71 - Other bursitis of hip, right hip Qualifiers: Hip bursitis location: trochanteric bursitis Qualified Code(s): M70.61 - Trochanteric bursitis, right hip Plan: Patient has met with Orthopedics and continue with keeping active. (3) Tobacco abuse: Code(s): Z72.0 - Tobacco use Plan: Patient is strongly advised to stop smoking! (4) COPD (chronic obstructive pulmonary disease): Code(s): J44.9 - Chronic obstructive pulmonary disease, unspecified Qualifiers: COPD type: emphysema Emphysema type: panlobular Qualified Code(s): J43.1 - Panlobular emphysema Plan: Patient strongly advised to stop smoking! Not requiring any inhaler for now (5) Hypertension: Code(s): I10 - Essential (primary) hypertension Qualifiers: Hypertension type: essential hypertension Qualified Code(s): I10 - Essential (primary) hypertension Plan: Continue with blood pressure medication. Decrease salt intake and exercise continue with amlodipine olmesartan 10/40 mg once a day and hydrochlorothiazide 25 mg once a day (6) Hypercholesterolemia: Code(s): E78.00 - Pure hypercholesterolemia, unspecified Plan: Avoid fried foods, chicken skin, eggs, butter margarine, pastries and meat. Be it pork or beef they have a lot of cholesterol LDL goal of less than 130 and triglyceride of less than 150 on atorvastatin 10 mg once a day last blood work was January 2023 (7) Gout attack: Code(s): M10.9 - Gout, unspecified Plan: information about diet, keep well hydrated and low purine diet Orders: Orders Vitamin B12 and Folate 3 Months E78.00 - Pure hypercholesterolemia, unspecified Lipid Panel 3 Months E78.00 - Pure hypercholesterolemia, unspecified Thyroid Stimulating Hormone 3 Months E78.00 - Pure hypercholesterolemia, unspecified Free T4 (Free Thyroxine) 3 Months E78.00 - Pure hypercholesterolemia, unspecified Complete Blood Count Auto Diff 3 Months E78.00 - Pure hypercholesterolemia, unspecified Comprehensive Met. Panel 3 Months E78.00 - Pure hypercholesterolemia, unspecified Uric Acid 3 Months E78.00 - Pure hypercholesterolemia, unspecified Medications: New colchicine take 2 at the first sign of gout attack and may repeat 0.6 mg 1 hour after orally; 10 tabs 0RF M10.9 - Gout, unspecified Quality Reporting (2019) Depression/Bipolar (159/160/161/177) PHQ-9: Total score: 0 Coding Level of Care Code Medicare Subsequent (G0439) Diagnoses Encounter for subsequent annual wellness visit (AWV) in Medicare patient Z00.00 Trochanteric bursitis of right hip M70.61 Hip bursitis location: trochanteric bursitis Tobacco abuse Z72.0 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 Emphysema type: panlobular Essential hypertension I10 Hypertension type: essential hypertension Hypercholesterolemia E78.00 Gout attack M10.9
== END 2023-10-31 13:07 | disposition home or self-care (01) ==
PROVIDERS: PCP Internal Medicine; Visit Provider Internal Medicine
DX: Z00.00 Encounter for general adult medical examination without abnormal findings (principal); F33.0 Major depressive disorder, recurrent, mild; F17.210 Nicotine dependence, cigarettes, uncomplicated; J43.1 Panlobular emphysema; I10 Essential (primary) hypertension; E78.00 Pure hypercholesterolemia, unspecified; M10.9 Gout, unspecified
CPT/HCPCS: G0439

== ENCOUNTER 2023-12-16 08:48 | Emergency (ER) | payer MEDICARE, OTHER, SELFPAY ==
[2023-12-16] VITALS (7 sets, daily range): BP systolic 145–165; BP diastolic 62–69; PULSE 62–96; RESP 14–18; TEMP -17.7–36.8; O2SAT 91–96; BMI 29.2
--- NOTE | ~2023-12-16 | US_ITS ---
EXAMINATION: US VENOUS ULTRASOUND WITH DOPPLER LOWER EXTREMITY, LEFT CLINICAL INFORMATION: Left lower extremity COMPARISON: None available. TECHNIQUE: Ultrasound of the deep veins is performed from the hip to the calf with compression sonography and color and pulse Doppler assessment. Spectral analysis with color-flow imaging is performed. FINDINGS: There is normal venous compression and respiratory variation and augmented flow. The visualized common femoral vein, superficial femoral vein, profunda femoral vein, popliteal vein, and the trifurcation region shows no evidence of deep venous thrombosis. There is no significant popliteal fossa cyst. Contralateral right common femoral vein appears normal. If the patient's symptoms persist, followup ultrasound in 5 days 7 days might be of value to exclude proximal propagation from a non-visualized calf vein. US/US venous duplex LE IMPRESSION: No DVT demonstrated in the left lower extremity.
--- NOTE | ~2023-12-16 | XR_ITS ---
EXAMINATION: XR CHEST CLINICAL INFORMATION: Cough and bilateral leg edema COMPARISON: None available. TECHNIQUE: Frontal view of the chest was obtained. FINDINGS: There is minimal elevation of left hemidiaphragm with possible trace pleural effusion. There is some ill-defined patchy density seen in the left midlung. The right lung is clear. Heart size is normal. XR/XR chest 1V IMPRESSION: Patchy density left midlung with possible trace pleural effusion. Findings may represent pneumonia.
--- NOTE | 2023-12-16 09:23 | ECG_ITS ---
Test Reason : edema Blood Pressure : / mmHG Vent. Rate : 073 BPM Atrial Rate : 073 BPM P-R Int : 154 ms QRS Dur : 102 ms QT Int : 410 ms P-R-T Axes : 042 -18 029 degrees QTc Int : 451 ms Sinus rhythm with occasional Premature ventricular complexes Incomplete right bundle branch block Cannot rule out Anterior infarct , age undetermined Abnormal ECG When compared with ECG of 20-MAY-2015 15:08, Premature ventricular complexes are now Present Referred By: Generic ED Physician Electronically Signed By:David Zabala
[2023-12-16 09:47] LABS: MANUAL DIFF FLAG NO
[2023-12-16 09:49] LABS: Basophils Absolute Auto 0.1 X10*3/uL (0.0-0.2); Basophils Percent Auto 0.9 % (0-2); Eosinophils Absolute Auto 0.3 X10*3/uL (0.0-0.4); Eosinophils Percent Auto 4.6 % (0-4); Hematocrit 39.1 % (42.0-52.0); Hemoglobin 13.7 g/dl (14.0-18.0); Imm Gran Abs Auto 0.03 X10*3/uL (0.00-0.03); Imm Gran Pct Auto 0.5 % (0.0-0.4); Lymphocytes Percent Auto 16.9 % (20-40); Mean Corpuscular Hemoglobin 37.4 pg (27.0-33.0); Mean Corpuscular Volume 106.8 fL (80.0-98.0); Mean Platelet Volume 8.9 fL (9.4-12.4); Monocytes Absolute Auto 0.6 X10*3/uL (0.1-1.2); Monocytes Percent Auto 11.4 % (2-11); Neutrophils Absolute Auto 3.7 x10*3/uL (2.0-8.3); Neutrophils Percent Auto 65.7 % (45-73); Platelet Count 200 X10*3/uL (160-400); Red Blood Count 3.66 X10*6/uL (4.60-5.80); Red Cell Distribution Width 17.2 % (11.0-16.0); White Blood Count 5.6 X10*3/uL (4.8-10.8)
[2023-12-16 10:02] LABS: Alanine Aminotransferase 14 U/L (0-40); Albumin Level 3.9 g/dL (3.5-5.0); Alkaline Phosphatase 74 U/L (39-117); Anion Gap 17 (12-20); Aspartate Amino Transferase 27 U/L (5-37); Blood Urea Nitrogen 21 mg/dL (9-16); Calcium 9.5 mg/dL (8.4-10.2); Carbon Dioxide 23 mmol/L (22-29); Chloride 101 mmol/L (96-108); Estimated Glomerular Filt Rate > 60; Glucose Random 103 mg/dL (60-115); Potassium 4.3 mmol/L (3.3-5.1); Sodium 137 mmol/L (135-145); Total Protein 7.2 g/dL (6.5-8.0)
[2023-12-16 10:08] LABS: B Type Natriuretic Peptide 494 pg/mL (<100)
[2023-12-16 10:09] LABS: Troponin-I High Sensitivity 19.2 ng/L (<3.5-35.0)
--- NOTE | 2023-12-16 19:02 | ED_ITS ---
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 comes here for 3 - 4 months ankle swelling specially in the evening denies any significant shortness of breath no chest pain no palpitation no recent travel but patient was in [place] in June patient has a chronic smoker cough no fever patient was seen by PCP and sent the patient here for further evaluation Related Data Home Medications ?Medication ?Instructions ?Recorded ?Confirmed B-complex with vitamin C 1 tab PO DAILY 11/25/20 10/31/23 ascorbate calcium (vitamin C) 500 500 mg PO DAILY 11/25/20 10/31/23 mg tablet cholecalciferol (vitamin D3) 50 50 mcg PO DAILY 11/25/20 10/31/23 mcg (2,000 unit) capsule Previous Rx's ?Medication ?Instructions ?Recorded atorvastatin 10 mg tablet 10 mg PO DAILY #90 tabs 02/07/23 hydrochlorothiazide 25 mg tablet 25 mg PO DAILY #90 tabs 05/05/23 amlodipine 10 mg-olmesartan 40 mg 1 tab PO DAILY #90 tabs 08/01/23 tablet colchicine 0.6 mg tablet See Rx Instructions PO .COMPLEX 10/31/23 #10 tabs albuterol sulfate 90 mcg/actuation 2 puff inhalation Q4-6H PRN 12/16/23 aerosol inhaler (ProAir HFA) shortness of breath or wheezing #8.5 grams furosemide 20 mg tablet (Lasix) 20 mg PO QAM #30 tabs 12/16/23 prednisone 20 mg tablet 40 mg (2 x 20 mg) PO DAILY #10 tabs 12/16/23 Allergies Allergy/AdvReac Type Severity Reaction Status Date / Time No Known Allergies Allergy Verified 12/16/23 09:23 [No Known Allergies*] Review of Systems 2 Review of Systems: Yes all other systems are reviewed and are negative [facility] Past Medical History Medical History Tubular adenoma of colon History of difficult intubation Smoker Guaiac + stool Colon cancer screening Medicare annual wellness visit, initial Renal calculi Abdominal wall hernia Tobacco abuse COPD (chronic obstructive pulmonary disease) Vitamin D deficiency Hypercholesterolemia Hypertension Surgical History History of incisional hernia repair S/P laparoscopic-assisted sigmoidectomy History of cataract surgery S/P surgical removal of pilonidal cyst History of inguinal hernia repair Family History Family History Mother No problems noted. Father No problems noted. Social History Social History Housing: House Alcohol intake: current Alcohol intake frequency: 3 or more drinks per day Alcohol type: hard liquor Comment: 2 Q night Patient Tobacco Use Status: Current everyday Tobacco user Tobacco use type: Cigarette Cigarettes Per Day: 10 Years Smoked: since 18 years old Smoked in Last 30 Days: Yes e-Cigarette/Vaping Use: Never Used Second Hand Smoke Exposure: No Use of substances other than those prescribed or required for medical reasons: No Advance Directives: No Advance Directives Information Provided: No Current occupational status: retired Cognitive needs: No Hearing needs: No Vision needs: Yes Physical Exam ED Vital Signs: Vital Signs - 24 hr 12/16/23 09:16 12/16/23 16:14 12/16/23 19:02 Temperature 98.2 F 98 F 98.1 F Pulse Rate 75 62 81 Respiratory Rate 18 18 18 Blood Pressure 158/63 H 145/65 H 154/62 H Pulse Oximetry 92 91 L 94 Oxygen Delivery Method Room Air Room Air Room Air 12/16/23 19:23 12/16/23 20:15 12/16/23 20:35 Temperature Pulse Rate 96 66 Respiratory Rate 16 14 Blood Pressure 165/69 H 165/69 H Pulse Oximetry 95 Oxygen Delivery Method Room Air 12/16/23 21:55 Temperature 0 F L Pulse Rate 70 Respiratory Rate 16 Blood Pressure 165/69 H Pulse Oximetry 95 Oxygen Delivery Method Room Air BMI result Body Mass Index 29.2 Appearance: Alert. Oriented X3. No acute distress. Eyes: PERRLA, No Nystagmus ENT: Pharynx normal. Oral Mucosa moist Neck: Normal inspection. Neck supple. CVS: Normal heart rate and rhythm. Pulses normal. Respiratory: No respiratory distress. Equal air entry bilateral, bilateral wheezing occasional fine crackles at the base Abdomen: Soft and nontender. Bowel sounds are present, no mass palpable, no CVA tenderness Skin: Skin warm and dry. Normal skin color. Normal skin turgor. Extremities: No lower extremity edema. No calf tenderness Neuro: Oriented X 3. No motor deficit. Course Course Course Narrative: This is an RME: Additional HPI, ROS, PE not included below will be deferred to primary provider. RME assessment and note performed by: Marilia Ramirez PA-C This is a 56-[id number]-male, with a hx of history of COPD, hypertension, hypercholesterolemia, recurrent major depression, who presents to the ER with complaints of left lower extremity swelling for the last several months however worsened over the last several days. Denies any shortness a breath or chest pain. Lungs with rhonchi throughout. Labs revealing macrocytic anemia, no leukocytosis, elevated BNP at 494, chest x-ray revealing possible pneumonia. Patient did recently travel to [place]. Further ER evaluation needed. Plan: Labs, EKG, CXR Medications Administered Discontinued Medications Generic Name Dose Route Start Last Admin Trade Name Freq PRN Reason Stop Dose Admin Albuterol Sulfate 2.5 mg/ 0 mg 12/16/23 20:04 12/16/23 20:13 Albuterol/Ipratropium 3 ml INHALE 12/16/23 20:05 5 dose ONCE ONE Administration Dexamethasone 10 mg 12/16/23 20:04 12/16/23 20:35 Dexamethasone 2 Mg Tablet PO 12/16/23 20:05 10 mg ONCE ONE Administration Furosemide 20 mg 12/16/23 20:04 12/16/23 20:35 Furosemide 20 Mg Tablet PO 12/16/23 20:05 20 mg ONCE ONE Administration Protocol Medical Decision Making Medical Decision Making MDM Narrative: Patient with COPD smoker with increased leg swelling on amlodipine with slightly elevated BNP with no findings of florid CHF will start patient on Lasix prednisone advised to start using nebulizing treatment and stop smoking referred to industrial illuminating engineer for echocardiogram and further management. Patient's venous Dopplerof the legs for the DVT was negative patient's x-ray showed possible patchy density left mid lung tenderness have any leukocytosis or significant change in the cough likely atelectasis Differential Diagnosis Differential Diagnoses: The differential diagnosis associated with the presentation includes Right-sided heart failure/COPD/cor pulmonale/amlodipine side effect Admission/Observation Consideration of admission/observation: Escalation of care including admission/observation considered Lab Data MDM Lab Attestation statement: I reviewed the patient's lab results. 12/16/23 09:43 12/16/23 09:43 Labs: Lab Results 12/16/23 Range/Units 09:43 WBC 5.6 (4.8-10.8) X10*3/uL RBC 3.66 L (4.60-5.80) X10*6/uL Hgb 13.7 L (14.0-18.0) g/dl Hct 39.1 L (42.0-52.0) % MCV 106.8 H (80.0-98.0) fL MCH 37.4 H (27.0-33.0) pg MCHC 35.0 (31.0-36.0) g/dl RDW 17.2 H (11.0-16.0) % Plt Count 200 (160-400) X10*3/uL MPV 8.9 L (9.4-12.4) fL Immature Gran % (Auto) 0.5 H (0.0-0.4) % Neut % (Auto) 65.7 (45-73) % Lymph % (Auto) 16.9 L (20-40) % [place] % (Auto) 11.4 H (2-11) % Eos % (Auto) 4.6 H (0-4) % Baso % (Auto) 0.9 (0-2) % Lymph # (Auto) 1.0 L (1.2-4.9) X10*3/uL [place] # (Auto) 0.6 (0.1-1.2) X10*3/uL Eos # (Auto) 0.3 (0.0-0.4) X10*3/uL Baso # (Auto) 0.1 (0.0-0.2) X10*3/uL Abs Immat Gran (auto) 0.03 (0.00-0.03) X10*3/uL Absolute Neuts (auto) 3.7 (2.0-8.3) x10*3/uL Absolute Nucleated RBC 0.000 (0.0-0.012) X10*3/uL Nucleated RBC % (auto) 0.0 (0.0-0.2) /100WBC Sodium 137 (135-145) mmol/L Potassium 4.3 (3.3-5.1) mmol/L Chloride 101 (96-108) mmol/L Carbon Dioxide 23 (22-29) mmol/L Anion Gap 17 (12-20) BUN 21 H (9-16) mg/dL Creatinine 0.76 (0.5-1.4) mg/dL Estim Creat Clear Calc 93.0 Estimated GFR > 60 Random Glucose 103 (60-115) mg/dL Calcium 9.5 (8.4-10.2) mg/dL Total Bilirubin 1.0 (0.0-1.0) mg/dL AST 27 (5-37) U/L ALT 14 (0-40) U/L Alkaline Phosphatase 74 (39-117) U/L Troponin I High Sens 19.2 (<3.5-35.0) ng/L B-Natriuretic Peptide 494 H (<100) pg/mL Total Protein 7.2 (6.5-8.0) g/dL Albumin 3.9 (3.5-5.0) g/dL Independent Interpretation I performed an independent interpretation of an: EKG Interpretation: Normal sinus rhythm heart rate 73 beats per minute incomplete right bundle- branch block poor progression of R-waves anterior leads no acute ST elevation no acute ischemia External Record Review External record reviewed: Office record and Primary care record Discharge Plan Discharge Clinical Impression: COPD (chronic obstructive pulmonary disease) with chronic bronchitis, Chronic right-sided CHF (congestive heart failure), Tobacco use, Pedal edema Patient Disposition: Home, Self-Care Instructions: Heart Failure (ED), How to Stop Smoking (ED), COPD (Chronic Obstructive Pulmonary Disease) (DC) Additional Instructions: Stop smoking, keep your legs elevated Use inhaler 2 puffs every 4-6 hours as needed for wheezing Prednisone as prescribed Diuretic/Lasix 20 mg daily Sick industrial illuminating engineer and PCP for further evaluation Prescriptions: New prednisone 20 mg tablet 40 mg PO DAILY Qty: 10 0RF albuterol sulfate [ProAir HFA] 90 mcg/actuation HFA aerosol inhaler 2 puff inhalation Q4-6H PRN (Reason: shortness of breath or wheezing) Qty: 8.5 0RF furosemide [Lasix] 20 mg tablet 20 mg PO QAM Qty: 30 0RF No Action hydrochlorothiazide 25 mg tablet 25 mg PO DAILY Qty: 90 3RF amlodipine-olmesartan 10-40 mg tablet 1 tab PO DAILY Qty: 90 2RF cholecalciferol (vitamin D3) 50 mcg (2,000 unit) capsule 50 mcg PO DAILY ascorbate calcium (vitamin C) 500 mg tablet 500 mg PO DAILY B-complex with vitamin C Tablet 1 tab PO DAILY atorvastatin 10 mg tablet 10 mg PO DAILY Qty: 90 3RF colchicine 0.6 mg tablet See Rx Instructions PO .COMPLEX Qty: 10 0RF Rx Instructions: take 2 at the first sign of gout attack and may repeat 0.6 mg 1 hour after orally; Referrals: David Zabala MD [Physician] - 1 week Interventions: ED Discharge Assessment Last Done: 12/16/23 21:55 Discharge Date/Time: 12/16/23 21:57 Print Language: Welsh
--- NOTE | 2023-12-16 19:28 | PC.NURSE ---
bilat lower leg edema for month +, cut to L leg from 3 weeks ago not healing. told by urgent care Saturday to come to ER. COPD, 94% RA. SOB when laying flat
[2023-12-16] MEDS: Albuterol Sulfate 2.5 MG, Albuterol/Iprat 2.5/0.5MG 3 ML 3 ML INHALE (20:13)
--- OUTSIDE RECORDS SUMMARY | 2023-12-16 20:14 | XMS_ITS | Patient Health Record ---
Author Organization [facility] Address [address] [place] [id number] Care Team Providers Care Video Editor Name Role Phone Bozena Cobb MD Primary Care Provider Jet Mercado Jr Unavailable [phone] REASON FOR REFERRAL No Information MEDICATIONS Medication SIG (Take, Route, Frequency, Duration) Notes Start Date End Date Status Atorvastatin Calcium 10 MG Orally Active hydroCHLOROthiazide 25 MG Orally Active MiraLax (colon prep) 8.3 oun ce ((238) grams mixed with Gatorade or Crystal Light orally begin at 5:00 p.m. the day before the procedure for 1 day 12/21/2020 Active amLODIPine-Olmesartan 10-40 MG Orally Active IMMUNIZATIONS Vaccine Route Administration Date Status Comme nts Influenza Unknown 05/29/2020 Administered SOCIAL HISTORY Tobacco Use: Social History Observation Description Date Details (start date - stop date) Current Smoker NA - NA Sex Assigned At : Social History Observation Description Sex Assigned At Unknown Tobacco Use/Smoking Question Answer Notes Patient is a current smoker How often do you smoke cigarettes? every day How many cigarettes a day do you smoke? 11-20 PROBLEMS Problem Type ICD Code Onset Dates Problem Status W/U Status Risk SNOMED Code Notes Problem Colon cancer screening (Z12.11) Active confirmed 170850282 Problem Abnormal findings in stool (R19.5) Active confirmed 438863047 Problem Anemia, unspecified type (D64.9) Active confirmed [id number] PLAN OF TREATMENT Future Test Test Name Order Date COLONOSCOPY 01/26/2015 COLONOSCOPY 12/21/2020 Insurance Providers Payer Name Payer Address Payer Phone Subscriber Number Group Number Insured Name Patient Relationship to Insured Coverage Start Date Coverage End Date MEDICARE OF [place] [address] [place] [address] [id number] IRIS CASTILLO Self - patient is the insured [facility] INDEMNITY [address] [place] [address] [id number] IRIS CASTILLO Self - patient is the insured MEDICAL (GENERAL) HISTORY Medical History History ICD Code hypertension COPD elevated cholesterol nephrolithiasis vitamin D deficiency Surgical History Surgery Date(Month/Year) hernia repair pilonidal cyst excision cataract-lens implants cyst removal insisional hernia [phone] partilal removal of colon - Dr Borjas 2017
[2023-12-16] MEDS: dexAMETHasone 2 MG TABLET 10 MG PO (20:35)
[2023-12-16] MEDS: Furosemide 20 MG TABLET PO (20:35)
--- NOTE | 2023-12-16 21:00 | PC.NURSE ---
pt resting comfortably at this time. breathing even and unlabored. lasix given, urinal at bedside
== END 2023-12-16 21:57 | disposition home or self-care (01) ==
PROVIDERS: Emergency Provider Internal Medicine; PCP Internal Medicine
DX: J44.89 Other specified chronic obstructive pulmonary disease (principal); I11.0 Hypertensive heart disease with heart failure; I50.814 Right heart failure due to left heart failure; R60.0 Localized edema; R06.02 Shortness of breath; E78.00 Pure hypercholesterolemia, unspecified; F17.210 Nicotine dependence, cigarettes, uncomplicated; Z79.02 Long term (current) use of antithrombotics/antiplatelets; Z79.899 Other long term (current) drug therapy
CPT/HCPCS: 36415; 71045; 80053; 83880; 84484; 85025; 93005; 93971; 94640; 99284; 99285; J8540

== ENCOUNTER → 2023-12-16 09:23 | Outpatient (BNV) | payer MEDICARE, OTHER, SELFPAY | PROVIDERS: Emergency Provider Internal Medicine; PCP Internal Medicine; Visit Provider Internal Medicine Cardiovascular Disease | DX: R94.31 Abnormal electrocardiogram [ECG] [EKG] (principal) | CPT/HCPCS: 93010 ==

== ENCOUNTER 2024-02-07 14:21 | Outpatient (AMB) | payer MEDICARE, OTHER, SELFPAY ==
[2024-02-07 14:22] VITALS: BP 140/58; PULSE 67; BMI 29.0
--- NOTE | 2024-02-07 14:22 | MHC.OFFVIS ---
Vital Signs 02/07/24 14:22 02/07/24 14:43 Height 5 ft 9 in Weight 196 lb 3.382 oz BMI 29.0 BP 140/58 H 110/52 L Blood Pressure Location Lt brachial Lt brachial Position Sitting Sitting Pulse 67 Pulse Source Pulse Oximeter Intake Visit Reasons: [facility] [place] [facility] [place] req- pitting edema Allergies No Known Allergies [No Known Allergies*] Allergy (Verified 12/16/23 09:23) HPI Comments Details: 73-year-old male presents today as a new patient. He was in the emergency room on 12/16/2023 due to shortness of breath and edema in bilateral extremities. BNP was noted to be 494. He was prescribed lasix and has improved greatly. He had some swelling prior to going to [place] and it was getting worse and was sent by Urgent Care to the ED. He is a smoker but has been reducing the amount he smokes. He also has a history of gout, COPD, hypercholesterolemia, and hypertension. Reports he has been feeling great since the swelling has reduced. He is avoiding salt best he cant. [facility] Medical History Tubular adenoma of colon History of difficult intubation Smoker Guaiac + stool Colon cancer screening Medicare annual wellness visit, initial Renal calculi Abdominal wall hernia Tobacco abuse COPD (chronic obstructive pulmonary disease) Vitamin D deficiency Hypercholesterolemia Hypertension Surgical History History of incisional hernia repair S/P laparoscopic-assisted sigmoidectomy History of cataract surgery S/P surgical removal of pilonidal cyst History of inguinal hernia repair Family History Mother No problems noted. Father No problems noted. Social History Housing: House Alcohol intake: current Alcohol intake frequency: 3 or more drinks per day Alcohol type: hard liquor Comment: 2 Q night Patient Tobacco Use Status: Current everyday Tobacco user Tobacco use type: Cigarette Cigarettes Per Day: 10 Years Smoked: since 18 years old e-Cigarette/Vaping Use: Never Used Second Hand Smoke Exposure: No Current occupational status: retired Cognitive needs: No Hearing needs: No Vision needs: Yes Review of Systems Const Denies weakness ENT Denies dizziness Card Denies chest pain, Denies chest pain with activity, Denies syncope, Denies rapid heart rate, Denies pedal edema, Denies edema, Denies leg edema, Denies lightheadedness, Denies palpitations, Denies dyspnea, Denies dyspnea on exertion and Denies orthopnea Resp Denies cough, Denies dyspnea and Denies dyspnea on exertion GI Denies hematochezia and Denies change in stool character Musc Denies abnormal gait, Denies muscle cramps, Denies muscle weakness, Denies numbness, Denies radiating pain into limb and Denies tingling Neuro Denies abnormal gait, Denies dizziness, Denies syncope, Denies numbness, Denies tingling and Denies weakness Endo Denies palpitations Physical Exam Vital Signs: Last Vital Signs Pulse 67 02/07/24 14:22 BP 110/52 L 02/07/24 14:43 BMI result Body Mass Index 29.0 Assessment & Plan Assessment & Plan (1) Chronic right-sided CHF (congestive heart failure): Code(s): I50.812 - Chronic right heart failure Category: Medical Plan: Does not appear to en in fluid overload today. On lasix 20mg. Will get lab work and echocardiogram. Avoidance of salt and daily weights advised. If weight gain of 3+ lbs overnight or 5+ lbs in a week to call us. (2) Hypertension: Code(s): I10 - Essential (primary) hypertension Category: Medical Qualifiers: Hypertension type: essential hypertension Qualified Code(s): I10 - Essential (primary) hypertension Plan: On amlodipine-olmesartan 10-40mg QD and hydrochlorothiazide 25mg QD. Managed by PCP. BP was initially high - rechecked by me and improved. (3) Hypercholesterolemia: Code(s): E78.00 - Pure hypercholesterolemia, unspecified Category: Medical Plan: On atorvastatin 10mg. Heart healthy diet encouraged. Managed by PCP. (4) Tobacco abuse: Code(s): Z72.0 - Tobacco use Category: Medical Plan: Complete smoking cessation advised. Plan Discussed with patient and . Will follow-up after results. Sooner if needed with myself or Dr. Zabala. Orders: Orders CA echo transthoracic complete Today I50.812 - Chronic right heart failure Basic Metabolic Panel Today I50.812 - Chronic right heart failure B Type Natriuretic Peptide Today I50.812 - Chronic right heart failure Medications: Changed From furosemide (Lasix) 20 mg PO QAM 30 tabs 1RF To furosemide (Lasix) 20 mg PO QAM 90 tabs 1RF 90 days Coding Level of Care Code New Pt Level 4 (94462) Diagnoses Chronic right-sided CHF (congestive heart failure) I50.812 Essential hypertension I10 Hypertension type: essential hypertension Hypercholesterolemia E78.00 Tobacco abuse Z72.0
[2024-02-07 14:43] VITALS: BP 110/52
== END 2024-02-07 14:51 | disposition home or self-care (01) ==
PROVIDERS: PCP Internal Medicine; Visit Provider Nurse Practitioner
DX: I50.812 Chronic right heart failure (principal); I10 Essential (primary) hypertension; E78.00 Pure hypercholesterolemia, unspecified; Z72.0 Tobacco use
CPT/HCPCS: 99204

== ENCOUNTER 2024-02-07 14:21 | Outpatient (REF) | payer MEDICARE, OTHER, SELFPAY ==
[2024-02-07 15:14] LABS: MANUAL DIFF FLAG NO
[2024-02-07 15:39] LABS: Basophils Absolute Auto 0.1 X10*3/uL (0.0-0.2); Basophils Percent Auto 0.8 % (0-2); Eosinophils Absolute Auto 0.7 X10*3/uL (0.0-0.4); Eosinophils Percent Auto 9.3 % (0-4); Hemoglobin 12.4 g/dl (14.0-18.0); Imm Gran Abs Auto 0.03 X10*3/uL (0.00-0.03); Imm Gran Pct Auto 0.4 % (0.0-0.4); Lymphocytes Percent Auto 28.1 % (20-40); Mean Corpuscular HGB Conc 34.4 g/dl (31.0-36.0); Mean Corpuscular Hemoglobin 36.5 pg (27.0-33.0); Mean Corpuscular Volume 105.9 fL (80.0-98.0); Mean Platelet Volume 9.2 fL (9.4-12.4); Monocytes Absolute Auto 0.7 X10*3/uL (0.1-1.2); Monocytes Percent Auto 9.3 % (2-11); Neutrophils Absolute Auto 3.7 x10*3/uL (2.0-8.3); Neutrophils Percent Auto 52.1 % (45-73); Platelet Count 247 X10*3/uL (160-400); White Blood Count 7.1 X10*3/uL (4.8-10.8)
[2024-02-07 16:11] LABS: B Type Natriuretic Peptide 129 pg/mL (<100)
[2024-02-07 16:17] LABS: Alanine Aminotransferase 12 U/L (0-40); Albumin Level 4.1 g/dL (3.5-5.0); Alkaline Phosphatase 72 U/L (39-117); Anion Gap 14 (12-20); Aspartate Amino Transferase 20 U/L (5-37); Bilirubin Total 0.5 mg/dL (0.0-1.0); Blood Urea Nitrogen 43 mg/dL (9-16); Calcium 9.6 mg/dL (8.4-10.2); Carbon Dioxide 27 mmol/L (22-29); Chloride 102 mmol/L (96-108); Cholesterol 148 mg/dL (<200); Estimated Glomerular Filt Rate 55; Glucose Random 106 mg/dL (60-115); HDL Cholesterol 51 mg/dL (>40); LDL Cholesterol Calculated 66 mg/dL (<100); Potassium 4.9 mmol/L (3.3-5.1); Sodium 138 mmol/L (135-145); Total Protein 7.2 g/dL (6.5-8.0); Triglycerides 155 mg/dL (<150)
[2024-02-07 16:18] LABS: Uric Acid 12.1 mg/dL (3.4-7.0)
[2024-02-07 16:33] LABS: Thyroid Stimulating Hormone 0.78 uIU/mL (0.32-4.0)
[2024-02-07 16:34] LABS: Free T4 (Free Thyroxine) 0.88 ng/dL (0.71-1.85)
[2024-02-07 16:46] LABS: Folate 5.9 ng/mL (> or = 4.0); Vitamin B12 589 pg/mL (200-900)
== END 2024-02-07 14:22 | disposition home or self-care (01) ==
LOC: HO.LAB 14:21
PROVIDERS: PCP Internal Medicine; Visit Provider Nurse Practitioner
DX: I11.0 Hypertensive heart disease with heart failure (principal); I50.812 Chronic right heart failure; E78.00 Pure hypercholesterolemia, unspecified; R60.0 Localized edema; R06.02 Shortness of breath; F17.210 Nicotine dependence, cigarettes, uncomplicated
CPT/HCPCS: 36415; 80053; 80061; 82607; 82746; 83880; 84439; 84443; 84550; 85025; 99202

== ENCOUNTER → 2024-03-04 13:52 | Outpatient (REF) | payer MEDICARE, OTHER, SELFPAY ==
--- NOTE | 2024-03-04 13:55 | CA_ITS ---
Transthoracic Echocardiogram Patient (Last, First, Middle): Jackson Vega E Gender: Male Date of : 1950 Age: 73 Procedure Date: 03/04/2024 Procedure Type: Transthoracic Echocardiogram Location: OP Height: 175.26 cm Weight: 88.91 kg BSA: 2.05 m2 Heart Rate: 83 bpm BP: 130 / 60 mmHg Hand Tapper: FRAN Referring MD: Evy Abdi [employer] WORK[employer] Business Intelligence Administrator: Rojas Hernadez MD Symptoms: I50.812 - Chronic right heart failure Study Quality: Adequate ECG Rhythm: Sinus with PVCs Conclusions: - 1. Normal LV ejection fraction at 55-60% with mildly dilated left ventricle with impaired relaxation filling pattern 2. Normal cardiac valvular Doppler 3. Normal RV systolic pressure 4. No gross pericardial effusion Findings Left Ventricle Mildly increased left ventricular cavity size. There is normal left ventricular wall thickness. The left ventricular systolic function is normal. The visually estimated ejection fraction is between 55-60%. Spectral Doppler is indicative of an impaired relaxation filling pattern. E/E prime ratio is between 8 and 15 consistent with indeterminate filling pressures. Wall Motion Rest Echo Findings The basal inferior, basal inferoseptal, and basal inferolateral segments are hypokinetic. All other scored wall segments showed normal motion. Right Ventricle Normal right ventricular cavity size and systolic function. Atria The left atrium is mildly dilated. There is no evidence of interatrial shunt. The right atrium is likely dilated. Aortic Valve The aortic valve structure and function is likely normal. There is no aortic valve stenosis. There is no aortic valve regurgitation. Mitral Valve Likely normal mitral valve structure and function. There is mild anterior mitral leaflet thickening. There is mild mitral annular calcification. There is trace mitral valve regurgitation. There is no mitral valve stenosis. Pulmonic Valve The pulmonic valve was not well visualized. Tricuspid Valve Likely normal tricuspid valve structure and function. There is trace tricuspid valve regurgitation. The right ventricular systolic pressure is normal. The right ventricular systolic pressure is 30 mmHg. Normal right atrial pressure. There is no evidence of pulmonary hypertension. Great Vessels The pulmonary artery was not well visualized. There is no dilatation of the ascending aorta measuring 3.20 cm. Venous The inferior vena cava is normal in size and collapses greater than 50% with inspiration. Pericardium/Pleural There is no evidence of pericardial effusion. Prior Study Comparison No prior study available for comparison. Measurements 2D Linear Measurements IVSd: 0.97 0.6-0.9/0.6-1.0 cm LVIDd: 5.93 3.9-5.3/4.2-5.9 cm LVIDd Index: 2.89 2.4-3.2/2.2-3.1 cm/m2 LVIDs: 4.02 2.0-3.6 cm LVPWd: 0.83 0.7-1.1 cm LA Diam: 4.50 2.7-3.8/3.0-4.0 cm LAIDs Index: 2.20 1.5-2.3 cm/m2 LV Mass: 335.83 67-162/88-224 g LV Mass Index: 163.82 43-95/49-115 g/m2 LVOT Diam: 2.50 3.0+(-)1.3 cm 2D Systolic Function EF 4C: 61.90 >55% EF 2C: 57.60 >55% EF BiP: 59.40 >55% Mitral Valve MV Pk E: 0.89 MV PK A: 0.86 MV Decel Time: 136.00 E/A: 1.00 E'Lateral: 9.46 E'Medial: 6.31 E/E' Med: 14.10 E/E' Lat: 9.40 PHT: 40.00 MVA PHT: 5.[address] [place]: 6.53 Aortic Valve AoV Pk Mariusz: 1.47 AoV Pk Grad: 9.00 KATHIE: 3.54 LVOT LVOT Pk Mariusz: 1.06 LVOT Mn Mariusz: 0.63 LVOT VTI: 0.22 LVOT Pk Grad: 4.00 LVOT Mn Grad: 2.00 LVOT Diam: 2.50 LVOT Area: 4.91 Diastolic Function MV Pk E: 0.89 MV Pk A: 0.86 E/A: 1.00 E'Medial: 6.31 E/E' Med: 14.10 E' Laterial: 9.46 E/E' Lat: 9.40 Right Ventricle TAPSE (mm): 28.50 TVS' Mariusz: 16.20 Tricuspid Valve TR Pk Mariusz: 2.62 TR Pk Grad: 27.00 RA Press: 3.00 RVSP: 30.00 Great Vessels Aorta Sinus of Valsalva: 3.60 2.0-3.5 cm Ao Asc: 3.20 2.1-3.4 cm Pulmonary Veins Pulm Vein S/D 1.30 Pulmonary Valve PV Pk Mariusz: 1.40 Peak PV Grad: 8.00 Updated in Other Vendor System with Status of Final Rojas Hernadez MD electronically signed on 03/05/2024 2:27:51 PM with status of Final
== END ==
LOC: HO.CARD 13:52
PROVIDERS: PCP Internal Medicine; Visit Provider Nurse Practitioner
DX: I50.812 Chronic right heart failure (principal)
CPT/HCPCS: 93306

== ENCOUNTER → 2024-03-04 13:55 | Outpatient (BNV) | payer MEDICARE, OTHER, SELFPAY | PROVIDERS: PCP Internal Medicine; Visit Provider Internal Medicine Cardiovascular Disease | DX: I50.812 Chronic right heart failure (principal); I34.81 Nonrheumatic mitral (valve) annulus calcification | CPT/HCPCS: 93306 ==

== ENCOUNTER 2024-03-27 09:57 | Outpatient (REF) | payer MEDICARE, OTHER, SELFPAY ==
[2024-03-27 11:12] LABS: MANUAL DIFF FLAG NO
[2024-03-27 11:20] LABS: Basophils Absolute Auto 0.1 X10*3/uL (0.0-0.2); Basophils Percent Auto 0.8 % (0-2); Eosinophils Absolute Auto 0.5 X10*3/uL (0.0-0.4); Eosinophils Percent Auto 6.8 % (0-4); Hematocrit 35.5 % (42.0-52.0); Hemoglobin 12.5 g/dl (14.0-18.0); Imm Gran Abs Auto 0.07 X10*3/uL (0.00-0.03); Lymphocytes Absolute Auto 1.6 X10*3/uL (1.2-4.9); Lymphocytes Percent Auto 22.4 % (20-40); Mean Corpuscular HGB Conc 35.2 g/dl (31.0-36.0); Mean Corpuscular Hemoglobin 37.3 pg (27.0-33.0); Mean Platelet Volume 9.2 fL (9.4-12.4); Monocytes Absolute Auto 0.5 X10*3/uL (0.1-1.2); Monocytes Percent Auto 6.5 % (2-11); Neutrophils Absolute Auto 4.5 x10*3/uL (2.0-8.3); Neutrophils Percent Auto 62.5 % (45-73); Platelet Count 253 X10*3/uL (160-400); Red Blood Count 3.35 X10*6/uL (4.60-5.80); Red Cell Distribution Width 15.6 % (11.0-16.0); Reticulocyte Percent 2.5 % (0.5-1.8); Reticulocytes Absolute 0.085 X10*6/uL (0.026-0.095); White Blood Count 7.2 X10*3/uL (4.8-10.8)
[2024-03-27 12:19] LABS: Anion Gap 10 (12-20); Blood Urea Nitrogen 28 mg/dL (9-16); Calcium 9.1 mg/dL (8.4-10.2); Carbon Dioxide 30 mmol/L (22-29); Chloride 103 mmol/L (96-108); Estimated Glomerular Filt Rate > 60; Ferritin 220 ng/mL (20-250); Free T4 (Free Thyroxine) 0.91 ng/dL (0.71-1.85); Glucose Random 103 mg/dL (60-115); Sodium 139 mmol/L (135-145); Uric Acid 12.7 mg/dL (3.4-7.0)
[2024-03-27 12:22] LABS: Alanine Aminotransferase 10 U/L (0-40); Albumin Level 3.9 g/dL (3.5-5.0); Alkaline Phosphatase 74 U/L (39-117); Anion Gap 12 (12-20); Aspartate Amino Transferase 17 U/L (5-37); Bilirubin Total 0.8 mg/dL (0.0-1.0); Blood Urea Nitrogen 29 mg/dL (9-16); Calcium 9.1 mg/dL (8.4-10.2); Carbon Dioxide 29 mmol/L (22-29); Chloride 102 mmol/L (96-108); Cholesterol 157 mg/dL (<200); Estimated Glomerular Filt Rate > 60; Glucose Random 102 mg/dL (60-115); HDL Cholesterol 49 mg/dL (>40); Iron 114 mcg/dL (45-160); LDL Cholesterol Calculated 79 mg/dL (<100); Percent Iron Saturation 46 % (15-50); Sodium 139 mmol/L (135-145); Thyroid Stimulating Hormone 1.07 uIU/mL (0.32-4.0); Total Iron Binding Capacity 250 mcg/dL (228-428); Total Protein 7.1 g/dL (6.5-8.0); Triglycerides 149 mg/dL (<150); Unsaturated Iron Binding 136 ug/dL
[2024-03-27 12:25] LABS: Estimated Average Glucose 91 mg/dL; Hemoglobin A1c % 4.8 % (<6.0)
[2024-03-27 12:35] LABS: Folate 5.7 ng/mL (> or = 4.0); Vitamin B12 450 pg/mL (200-900)
== END 2024-03-27 09:58 | disposition home or self-care (01) ==
LOC: HO.WFDLDS 09:57
PROVIDERS: Referring Provider Nurse Practitioner; Visit Provider Internal Medicine
DX: D64.9 Anemia, unspecified (principal); E78.00 Pure hypercholesterolemia, unspecified; M10.9 Gout, unspecified; I50.812 Chronic right heart failure; Z13.1 Encounter for screening for diabetes mellitus
CPT/HCPCS: 36415; 80048; 80053; 80061; 82607; 82728; 82746; 83036; 83540; 84439; 84443; 84550; 85025; 85045

== ENCOUNTER 2024-04-02 12:55 | Outpatient (AMB) | payer MEDICARE, OTHER, SELFPAY ==
[2024-04-02 12:59] VITALS: BP 136/54; PULSE 69; O2SAT 94; BMI 29.7
--- NOTE | 2024-04-02 13:00 | A.OFFPC_ITS ---
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 Last seen in October 2023 patient's colonoscopy is up-to-date 01/15/2021. Review of the notes had an echocardiogram March 05 Normal LV ejection fraction at 55-60% with mildly dilated left ventricle with impaired relaxation filling pattern 2. Normal cardiac valvular Doppler 3. Normal RV systolic pressure 4. No gross pericardial effusion Cardiology notes having had ER visit in November 2023 for shortness of breath and leg swelling. BNP is 494. Was prescribed Lasix right-sided congestive heart failure [facility] Medical History Tubular adenoma of colon History of difficult intubation Smoker Guaiac + stool Colon cancer screening Medicare annual wellness visit, initial Renal calculi Abdominal wall hernia Tobacco abuse COPD (chronic obstructive pulmonary disease) Vitamin D deficiency Hypercholesterolemia Hypertension Surgical History History of incisional hernia repair S/P laparoscopic-assisted sigmoidectomy History of cataract surgery S/P surgical removal of pilonidal cyst History of inguinal hernia repair Family History Mother No problems noted. Father No problems noted. Social History Housing: House Alcohol intake: current Alcohol intake frequency: 3 or more drinks per day Alcohol type: hard liquor Comment: 2 Q night Patient Tobacco Use Status: Current everyday Tobacco user Tobacco use type: Cigarette Cigarettes Per Day: 10 Years Smoked: since 18 years old e-Cigarette/Vaping Use: Never Used Second Hand Smoke Exposure: No Current occupational status: retired Cognitive needs: No Hearing needs: No Vision needs: Yes Questionnaire Thrive Questionnaire Date Thrive assessed: 04/02/24 I am a: Patient What is your living situation today?: I have a steady place to live Within the past 12 months, did the food you bought not last and you didn't have the money to get more?: Never true Within the past 12 months, did you worry whether your food would run out before you got money to buy more?: Never true Do you have trouble paying for medicines?: No Do you have trouble getting transportation to medical appointments?: No Do you have trouble paying your heating and electricity bill?: No Do you have trouble taking care of your child, family member or friend?: No Do you have trouble with day-to-day activities such as bathing, preparing meals, shopping, managing finances, etc.?: No Are you currently unemployed and looking for a job?: No Are you interested in more education?: No Please select the resources that you would like help with: None Currently or been in a relationship where the following occur: No concerns reported THRIVE Score: 0 AUDIT C Alcohol Use Questionnaire (AUDIT-C) 1. How often do you have a drink containing alcohol?: 2-3 times a week 2. How many drinks containing alcohol do you have on a typical day when you are drinking?: 1 or 2 3. How often do you have six or more drinks on one occasion?: Never Total Score: 3 SHAMEKA-7 AMB Questionnaire SHAMEKA-7 Date SHAMEKA - 7 assessed: 04/02/24 Source: Developed by Drs. Krishan Antony, Lissett Odom, Kurt Salmeron and colleagues, with an educational maria fernanda from [employer]. Physical exam (Primary Care) Vital Signs: Last Vital Signs Pulse 69 04/02/24 12:59 BP 136/54 L 04/02/24 12:59 Pulse Ox 94 04/02/24 12:59 Oxygen Delivery Method Room Air 04/02/24 12:59 BMI result Body Mass Index 29.7 Tobacco/Smoking Status: Tobacco use Status Tobacco use date assessed 04/02/24 04/02/24 13:02 Patient Tobacco Use Status Current everyday Tobacco 04/02/24 13:02 Tobacco use type Cigarette 04/02/24 13:02 e-Cigarette/Vaping Use Never Used 04/02/24 13:02 Thrive Assessment: Date of Thrive Assessment Date Thrive assessed 04/02/24 04/02/24 13:02 Currently or been in a relationship where the following occur: No concerns repor iram Const General: alert; No acute distress Eyes Conjunctivae: conjunctivae normal Resp Auscultation: clear to auscultation bilaterally Cardio Rate: regular rate Rhythm: regular rhythm GI Inspection: Yes normal to inspection Extrem General: Yes normal to inspection and No edema Assessment and Plan Assessment & Plan (1) Congestive heart failure with preserved left ventricular function, NYHA class 3: Code(s): I50.30 - Unspecified diastolic (congestive) heart failure Plan: Weigh daily, low-salt diet (2) Tobacco abuse: Comment: 03/2024 5-6 cigarettes a day Code(s): Z72.0 - Tobacco use Plan: Patient is strongly advised to stop smoking! (3) COPD (chronic obstructive pulmonary disease): Code(s): J44.9 - Chronic obstructive pulmonary disease, unspecified Qualifiers: COPD type: emphysema Emphysema type: panlobular Qualified Code(s): J43.1 - Panlobular emphysema Plan: Patient is strongly advised to stop smoking! Continue with albuterol inhaler as needed (4) Anemia: Code(s): D64.9 - Anemia, unspecified Plan: Continue to monitor anemia (5) Hypertension: Code(s): I10 - Essential (primary) hypertension Qualifiers: Hypertension type: essential hypertension Qualified Code(s): I10 - Essential (primary) hypertension Plan: Continue with blood pressure medication. Decrease salt intake and exercise on amlodipine olmesartan 10/40 once a day hydrochlorothiazide 25 mg once a day (6) Hypercholesterolemia: Code(s): E78.00 - Pure hypercholesterolemia, unspecified Plan: Avoid fried foods, chicken skin, eggs, butter margarine, pastries and meat. Be it pork or beef they have a lot of cholesterol on atorvastatin 10 mg once a day LDL goal of less than 100 and triglyceride of less than 150. Medications: Refilled colchicine take 2 at the first sign of gout attack and may repeat 0.6 mg 1 hour after orally; 10 tabs 0RF M10.9 - Gout, unspecified Coding Level of Care Code Est Pt Level 4 (15974) Diagnoses Congestive heart failure with preserved left ventricular function, NYHA class 3 I50.30 Tobacco abuse Z72.0 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 Emphysema type: panlobular Anemia D64.9 Essential hypertension I10 Hypertension type: essential hypertension Hypercholesterolemia E78.00
== END 2024-04-02 13:38 | disposition home or self-care (01) ==
PROVIDERS: PCP Internal Medicine; Visit Provider Internal Medicine
DX: I11.0 Hypertensive heart disease with heart failure (principal); I50.30 Unspecified diastolic (congestive) heart failure; J43.1 Panlobular emphysema; F17.210 Nicotine dependence, cigarettes, uncomplicated; D64.9 Anemia, unspecified; E78.00 Pure hypercholesterolemia, unspecified
CPT/HCPCS: 99214

== ENCOUNTER → 2024-04-24 08:03 | Outpatient (REF) | payer MEDICARE, OTHER, SELFPAY ==
--- NOTE | ~2024-04-24 | NM_ITS ---
Lexiscan Myocardial perfusion study Indication: Congestive heart failure to evaluate for myocardial ischemia Technique: The patient was brought in for a Lexiscan perfusion study on 04/24/2024 and was injected 0.4 mg of Lexiscan intravenously. Within a minute of this injection 30 mCi of sestamibi was given intravenously. Images were obtained using the SPECT gamma camera interlaced with the gating device. Images were obtained in supine position. Resting perfusion study was performed on 04/28/2024. Patient was administered 30 mCi of sestamibi intravenously at rest. Images were then obtained in supine position. Images obtained without without CT attenuation. Total DLP 92 mGy-cm. Images were processed with the software and compared side to side in short axis, horizontal long axis and vertical long axis views. Findings: Both breast study was obtained uptake interfering with myocardial uptake aspiration of the inferior and inferolateral wall. The stress perfusion study showed nonattenuated images show moderately reduced uptake in the inferior wall of the LV myocardium as well as moderately reduced uptake in the inferolateral wall of the LV myocardium. Attenuation corrected images show normal uptake of radiotracer in all segments of the myocardium with minimal linear reduced uptake in the basal inferior wall of the LV myocardium.. The gated study shows reduced LV systolic function with calculated LVEF of 41%. LV cavity is mildly dilated in size. The gated study shows normal systolic wall thickening and contraction of segments. Resting study shows nontender images show normal uptake of radiotracer in all segments of the LV myocardium. Gating at rest reveals normal systolic wall motion with ejection fraction at 49%. The findings are consistent with no clear reversible defect suggestive of ischemia.. NM/NM cardiolite stress test Impression: 1. Myocardial perfusion imaging study shows likely normal myocardial perfusion 2. Gated LVEF is 41% 3. Transient ischemic dilatation not present but LV cavity is dilated Non-diagnostic changes on EKG. Electronically signed by: Rojas Hernadez MD 04/28/2024 03:54 PM EDT
--- NOTE | 2024-04-24 08:11 | CA_ITS ---
Acquisition Time: 2024-04-24 08:00:54 Total Exercise Time: 00:02:00 Test Indications: CHF HTN Medications: ALBUTEROL AMLODIPINE ATORVASTATIN COLCHICINE FUROSEMIDE HCTZ Protocol: LEXISCAN Max HR: 107 BPM 73% of Pred: 145 BPM Max BP: 158/068 mmHG Max Work Load: 1.0 METS Pharmacological stress test with Lexiscan injection while sitting and marhcing in place, without anginal symptoms, with isolated PVCs and one cuplet, with resting HTN, normotensive response to injection, with nondiagnoisitic EKGs. Nuclear images pending Test reviewed with Dr. Cortés. Referred By: Evy Abdi Overread By: Evy Abdi
== END ==
LOC: HO.CARD 08:03
PROVIDERS: PCP Internal Medicine; Visit Provider Nurse Practitioner
DX: I11.0 Hypertensive heart disease with heart failure (principal); I50.812 Chronic right heart failure
CPT/HCPCS: 78452; 93017; A9500; J0280; J2785

== ENCOUNTER → 2024-04-24 08:11 | Outpatient (BNV) | payer MEDICARE, OTHER, SELFPAY | PROVIDERS: PCP Internal Medicine; Visit Provider Nurse Practitioner | DX: I50.9 Heart failure, unspecified (principal) | CPT/HCPCS: 78452; 93016; 93018 ==

== ENCOUNTER 2024-11-16 13:18 | Outpatient (AMB) | payer MEDICARE, OTHER, SELFPAY ==
--- NOTE | 2024-11-16 13:20 | MHC.PC.OV ---
Vital Signs 11/16/24 13:22 Height 5 ft 9 in Weight 193 lb BMI 28.5 BP 112/68 Blood Pressure Location Lt brachial Position Sitting Pulse 73 Pulse Source Pulse Oximeter Temp 97.3 F Temp Source Temporal Artery Scan Pulse Oximetry (%) 94 Oxygen Delivery Method Room Air Intake Visit Reasons: Follow Up Intake Note: Patient is here to follow up on CHF, COPD, Hypercholesterolemia. Recruitment Specialist Required: No Clerk Of Scales: Not Required per policy Accompanied by: Self / Same As Patient Allergies No Known Allergies [No Known Allergies*] Allergy (Verified 11/16/24 13:22) Tobacco use date assessed: 11/16/24 Fall risk assessment: No Falls in past year Last assessed Fall Risk: 11/16/24 Dental Screening Dental Screen Date: 11/16/24 Did you have a dental visit in the last 12 months?: Yes Did you have a dental problem in the last 6 months where you did not have access to dental care?: No Was dental information given to patient?: Patient has dentist [facility] Medical History (Updated 04/02/24 @ 13:28 by Bozena Cobb MD) Tubular adenoma of colon History of difficult intubation Smoker Guaiac + stool Colon cancer screening Medicare annual wellness visit, initial Renal calculi Abdominal wall hernia Tobacco abuse COPD (chronic obstructive pulmonary disease) Vitamin D deficiency Hypercholesterolemia Hypertension Surgical History (Updated 11/16/24 @ 13:27 by THERESA Zuniga) History of removal of cyst History of incisional hernia repair S/P laparoscopic-assisted sigmoidectomy History of cataract surgery S/P surgical removal of pilonidal cyst History of inguinal hernia repair Family History Mother No problems noted. Father No problems noted. Social History Housing: House Alcohol intake: current Alcohol intake frequency: 3 or more drinks per day Alcohol type: hard liquor Comment: 2 Q night Patient Tobacco Use Status: Current everyday Tobacco user Tobacco use type: Cigarette Cigarette Packs Per Day: 0.5 Cigarettes Per Day: 10 Years Smoked: since 18 years old e-Cigarette/Vaping Use: Never Used Second Hand Smoke Exposure: Yes service: No Current occupational status: retired Cognitive needs: No Hearing needs: No Vision needs: Yes Questionnaire PHQ-9 Over the last 2 weeks, how often have you been bothered by any of the following problems? 1. Little interest or pleasure in doing things: not at all 2. Feeling down, depressed, or hopeless: not at all 3. Trouble falling or staying asleep, or sleeping too much: not at all 4. Feeling tired or having little energy: not at all 5. Poor appetite or overeating: not at all 6. Feeling bad about yourself - or that you are a failure or have let yourself or your family down: not at all 7. Trouble concentrating on things, such as reading the newspaper or watching television: not at all 8. Moving or speaking so slowly that other people could have noticed. Or the opposite - being so fidgety or restless that you have been moving around a lot more than usual: not at all 9. Thoughts that you would be better off or of hurting yourself in some way: not at all Total score: 0 Depression Screening Interpretation: Negative Depression Screening Done: Yes Source: Developed by Drs. Krishan Antony, Lissett Odom, Kurt Salmeron and colleagues, with an educational maria fernanda from [employer]. Thrive Questionnaire Date Thrive assessed: 11/16/24 I am a: Patient What is your living situation today?: I have a steady place to live Within the past 12 months, did the food you bought not last and you didn't have the money to get more?: Never true Within the past 12 months, did you worry whether your food would run out before you got money to buy more?: Never true Do you have trouble paying for medicines?: No Do you have trouble getting transportation to medical appointments?: No Do you have trouble paying your heating and electricity bill?: No Do you have trouble taking care of your child, family member or friend?: No Do you have trouble with day-to-day activities such as bathing, preparing meals, shopping, managing finances, etc.?: No Are you currently unemployed and looking for a job?: No Are you interested in more education?: No Please select the resources that you would like help with: None Currently or been in a relationship where the following occur: No concerns reported THRIVE Score: 0 AUDIT C Alcohol Use Questionnaire (AUDIT-C) 1. How often do you have a drink containing alcohol?: 2-3 times a week 2. How many drinks containing alcohol do you have on a typical day when you are drinking?: 1 or 2 Total Score: 3 SHAMEKA-7 AMB Questionnaire SHAMEKA-7 Date SHAMEKA - 7 assessed: 11/16/24 Feeling nervous, anxious, or on edge: 0 = Not at all Not being able to stop or control worryin = Not at all Worrying too much about different things: 0 = Not at all Trouble relaxin = Not at all Being so restless that it is hard to sit still: 0 = Not at all Becoming easily annoyed or irritable: 0 = Not at all Feeling afraid as if something awful might happen: 0 = Not at all Total SHAMEKA-7 score (0-4 normal; 5-9 mild; 10-14 moderate; 15-21 severe): 0 Source: Developed by Drs. Krishan Antony, Lissett Odom, Kurt Salmeron and colleagues, with an educational maria fernanda from [employer]. Physical exam (Primary Care) Vital Signs: Last Vital Signs Temp 97.3 F 11/16/24 13:22 Pulse 73 11/16/24 13:22 BP 112/68 11/16/24 13:22 Pulse Ox 94 11/16/24 13:22 Oxygen Delivery Method Room Air 11/16/24 13:22 BMI result Body Mass Index 28.5 Tobacco/Smoking Status: Tobacco use Status Tobacco use date assessed 11/16/24 11/16/24 13:28 Patient Tobacco Use Status Current everyday Tobacco 11/16/24 13:28 Tobacco use type Cigarette 11/16/24 13:28 e-Cigarette/Vaping Use Never Used 11/16/24 13:28 PHQ-9: PHQ-9 Score PHQ-9: Total score 0 11/16/24 13:28 Depression Screening Interpretation: Negative Thrive Assessment: Date of Thrive Assessment Date Thrive assessed 11/16/24 11/16/24 13:28 Currently or been in a relationship where the following occur: No concerns reported Const General: alert; No acute distress Eyes Conjunctivae: conjunctivae normal Resp Auscultation: clear to auscultation bilaterally Cardio Rate: regular rate Rhythm: regular rhythm GI Inspection: Yes normal to inspection Extrem General: Yes normal to inspection and No edema Coding Level of Care Code Est Pt Level 4 (90363) Diagnoses Congestive heart failure with preserved left ventricular function, NYHA class 3 I50.30 Tobacco abuse Z72.0 Essential hypertension I10 Hypertension type: essential hypertension Hypercholesterolemia E78.00 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 Emphysema type: panlobular Assessment & Plan Assessment & Plan (1) Congestive heart failure with preserved left ventricular function, NYHA class 3: Code(s): I50.30 - Unspecified diastolic (congestive) heart failure Category: Medical Plan: Patient on furosemide 20 mg once a day continue with hydrochlorothiazide and blood pressure medication (2) Tobacco abuse: Comment: 03/2024 5-6 cigarettes a day Code(s): Z72.0 - Tobacco use Category: Medical Plan: Patient is strongly advised to stop smoking (3) Hypertension: Code(s): I10 - Essential (primary) hypertension Category: Medical Qualifiers: Hypertension type: essential hypertension Qualified Code(s): I10 - Essential (primary) hypertension Plan: Continue with blood pressure medication. Decrease salt intake and exercise patient takes amlodipine olmesartan 10/40 mg once a day hydrochlorothiazide 25 mg once a day (4) Hypercholesterolemia: Code(s): E78.00 - Pure hypercholesterolemia, unspecified Category: Medical Plan: Avoid fried foods, chicken skin, eggs, butter margarine, pastries and meat. Be it pork or beef they have a lot of cholesterol on atorvastatin 10 mg once a day LDL goal of less than 100 (5) COPD (chronic obstructive pulmonary disease): Code(s): J44.9 - Chronic obstructive pulmonary disease, unspecified Category: Medical Qualifiers: COPD type: emphysema Emphysema type: panlobular Qualified Code(s): J43.1 - Panlobular emphysema Plan: Patient is on albuterol. Plan History of Present Illness The patient is a 74-year-old male presenting for general health maintenance. He has a comprehensive medical history including essential hypertension, hypercholesterolemia, COPD, and congestive heart failure with a decreased ejection fraction previously noted at 41%. This history is compounded by his ongoing smoking habit, diagnosed recurrent major depressive disorder, gout with an elevated uric acid level at 12.7, impaired glucose metabolism, and anemia with recent values of hemoglobin at 12.5. Weight loss has been observed since March 2024, with a noted reduction of 8 pounds. He experiences intermittent hip pain and numbness associated with arthritis, although previous imaging indicated minimal progression. He adheres to a regimen of diuretics and cardiovascular medications while using albuterol as needed for respiratory symptoms. Diet alterations have been necessary following dietary missteps while traveling, leading to acute gout episodes. Health Maintenance - Blood work management and monitoring for anemia and impaired glucose level - Advise on smoking cessation expressed, yet not accepted - Review of previous colonoscopy conducted in December 2020; follow-up schedule not specifically set - Encouragement of weight management strategies through dietary modifications - Annual eye examinations reported, and current on AREDS supplementation Social History - The patient continues to work part-time as an occupation - Reports ongoing smoking habit - Active travel to [place] impacting dietary habits, with social activities discussed - Physical activity involves routine tasks and mild mobility limitations due to arthritis Review of Systems - Respiratory: Denies shortness of breath, reports wheezing - Musculoskeletal: Reports hip pain and intermittent numbness - Gastrointestinal: Reports mild dietary changes impacting gout - Cardiovascular: Denies swelling, reports regular cardiovascular monitoring - Neurological: Denies significant neurological symptoms except for localized numbness Physical Exam - Respiratory- Wheezing noted upon auscultation Results - Labs: Hemoglobin 12.5, Hematocrit 35.5, Uric Acid 12.7, BMP 129, LDL 79 - Tests: Myocardial perfusion imaging and stress test indicated an E.F. of 41% - Ultrasound: Left ventricular ejection fraction was 55-60% Plan The management plan involves continuing the current treatment regimen for hypertension, hypercholesterolemia, and COPD, while emphasizing lifestyle changes and dietary modifications to manage lithium uric acid levels and mitigate gout flare-outs. Blood testing is scheduled to monitor anemia and impaired glucose metabolism. The patient was advised on regular follow-up visits and compliance with chronic care maintenance, especially observing cardiac health parameters. Social determinants such as travel-related dietary variables are accounted for and discussed for moderation. Patient was informed and verbally consented to the use of an ambient scribe for clinic note documentation during this visit. Discussion Notes In our discussion, I highlighted the significance of medication adherence and lifestyle modifications in managing chronic conditions such as hypertension, hypercholesterolemia, and COPD. The patient was counseled on smoking cessation, though he declined to quit at this time. The significance of monitoring uric acid levels and adjusting dietary habits to prevent gout flare-ups was discussed. The potential need for further cardiac evaluation was addressed pending progression of symptoms. The patient is aware of the need for regular lab testing to monitor anemia and impaired glucose levels. Preventive health measures such as regular eye exams and maintaining physical activity were encouraged. We emphasized the importance of regular follow-up and continuing evaluation, especially concerning his cardiac status and pulmonary function. Patient Instructions - Continue prescribed medications as directed for hypertension and hypercholesterolemia. - Monitor diet to prevent gout flare-ups and reduce uric acid levels. - Attend scheduled blood work appointments for anemia and glucose monitoring. - Use albuterol as needed for COPD symptoms, though regular use is not warranted. - Consider smoking cessation to improve respiratory health. - Maintain regular physical activity, within comfortable limits due to hip arthritis. - Seek medical advice if experiencing worsening cardiovascular or respiratory symptoms. - Schedule follow-ups as discussed and adhere to chronic disease management plans. Orders: Orders Complete Blood Count Auto Diff 3 Months D64.9 - Anemia, unspecified Ferritin 3 Months D64.9 - Anemia, unspecified Reticulocyte Count 3 Months D64.9 - Anemia, unspecified Lipid Panel 3 Months D64.9 - Anemia, unspecified, E78.00 - Pure hypercholesterolemia, unspecified Thyroid Stimulating Hormone 3 Months D64.9 - Anemia, unspecified Free T4 (Free Thyroxine) 3 Months D64.9 - Anemia, unspecified Vitamin B12 and Folate 3 Months D64.9 - Anemia, unspecified Uric Acid 3 Months D64.9 - Anemia, unspecified Comprehensive Met. Panel 3 Months D64.9 - Anemia, unspecified IRON PROFILE 3 Months D64.9 - Anemia, unspecified B Type Natriuretic Peptide 3 Months D64.9 - Anemia, unspecified
--- OUTSIDE RECORDS SUMMARY | 2024-11-16 13:21 | XMS_ITS | Patient Health Record ---
Author Organization [facility] Address [address] [place] [address] Care Team Providers Care Traffic Operations Engineer Name Role Phone Bozena Cobb MD Primary Care Provider Jet Mercado Jr Unavailable Reason For Referral No Information Medications Medication SIG (Take, Route, Frequency, Duration) Notes Start Date End Date Status Atorvastatin Calcium 10 MG Orally Active hydroCHLOROthiazide 25 MG Orally Active MiraLax (colon prep) 8.3 oun ce ((238) grams mixed with Gatorade or Crystal Light orally begin at 5:00 p.m. the day before the procedure for 1 day 12/21/2020 Active amLODIPine-Olmesartan 10-40 MG Orally Active Immunizations Vaccine Route Administration Date Status Comme nts Influenza Unknown 05/29/2020 Administered Social History Tobacco Use: Social History Observation Description Date Details (start date - stop date) Current Smoker NA - NA Tobacco Use/Smoking Question Answer Notes Patient is a current smoker How often do you smoke cigarettes? every day How many cigarettes a day do you smoke? 11-20 Problems Problem Type SNOMED Code ICD Code Onset Dates Problem Status W/U Status Risk Notes Problem 364509832 Colon cancer screening (Z12.11) Active confirmed Problem 147074249 Abnormal findings in stool (R19.5) Active confirmed Problem 936049012 Anemia, unspecified type (D64.9) Active confirmed Plan Of Treatment Future Test Test Name Order Date COLONOSCOPY 01/26/2015 COLONOSCOPY 12/21/2020 Insurance Providers Payer Name Payer Address Payer Phone Subscriber Number Group Number Insured Name Patient Relationship to Insured Coverage Start Date Coverage End Date MEDICARE OF [place] [address] [place] [address] [id number] IRIS CASTILLO Self - patient is the insured [facility] [address] [place] [address] [phone] [id number] IRIS CASTILLO Self - patient is the insured Medical (General) History Medical History History ICD Code hypertension COPD elevated cholesterol nephrolithiasis vitamin D deficiency Surgical History Surgery Date(Month/Year) hernia repair pilonidal cyst excision cataract-lens implants cyst removal insisional hernia [phone] partilal removal of colon - Dr Borjas 2017
[2024-11-16 13:22] VITALS: BP 112/68; PULSE 73; TEMP 36.3; O2SAT 94; BMI 28.5
== END 2024-11-16 14:12 | disposition home or self-care (01) ==
LOC: HO.HMCH 13:18
PROVIDERS: PCP Internal Medicine; Visit Provider Internal Medicine
DX: I11.0 Hypertensive heart disease with heart failure (principal); I50.30 Unspecified diastolic (congestive) heart failure; J43.1 Panlobular emphysema; Z72.0 Tobacco use; E78.00 Pure hypercholesterolemia, unspecified

== ENCOUNTER → 2024-11-16 13:18 | Outpatient (BNVA) | payer MEDICARE, OTHER, SELFPAY | PROVIDERS: PCP Internal Medicine; Visit Provider Internal Medicine | DX: I11.0 Hypertensive heart disease with heart failure (principal); I50.30 Unspecified diastolic (congestive) heart failure; E78.00 Pure hypercholesterolemia, unspecified; J43.1 Panlobular emphysema; Z72.0 Tobacco use | CPT/HCPCS: 99212 ==

== ENCOUNTER 2025-03-25 08:24 | Outpatient (REF) | payer MEDICARE, OTHER, SELFPAY ==
--- OUTSIDE RECORDS SUMMARY | 2025-03-25 09:02 | XMS_ITS | Patient Health Record ---
Author Organization [facility] Address [address] [place] [id number] Care Team Providers Care Investigation Division Captain Name Role Phone Bozena Cobb MD Primary [...] Problem Status W/U Status Risk Notes Problem [id number] Colon cancer screening (Z12.11) Active confirmed Problem 208471086 Abnormal findings in stool (R19.5) Active confirmed Problem 211292172 Anemia, unspecified type (D64.9) Active confirmed Plan Of Treatment Future Test Test Name Order Date COLONOSCOPY 01/26/2015 COLONOSCOPY 12/21/2020 Next Appt Details Provider Name:Jet bradley Jr, 04/29/2025 01:55:00 PM, [address], [address], [place], [address], Insurance Providers Payer Name Payer Address Payer Phone Subscriber Number Group Number Insured Name Patient Relationship to Insured Coverage Start Date Coverage End Date MEDICARE OF [place] [address] [place] [address] [phone] [id number] IRIS CASTILLO Self - patient is the insured [facility] [address] [place] [address] [id number] IRIS CASTILLO Self - patient is the insured Medical (General) History Medical History History ICD Code hypertension COPD elevated cholesterol nephrolithiasis vitamin D deficiency Surgical History Surgery Date(Month/Year) hernia repair pilonidal cyst excision cataract-lens implants cyst removal insisional hernia [phone] partilal removal of colon - Dr Borjas 2017
[2025-03-25 11:27] LABS: MANUAL DIFF FLAG NO
[2025-03-25 11:39] LABS: Hematocrit 32.9 % (42.0-52.0); Hemoglobin 10.8 g/dl (14.0-18.0); Imm Gran Abs Auto 0.02 X10*3/uL (0.00-0.03); Imm Gran Pct Auto 0.3 % (0.0-0.4); Lymphocytes Absolute Auto 1.9 X10*3/uL (1.2-4.9); Mean Corpuscular HGB Conc 32.8 g/dl (31.0-36.0); Mean Corpuscular Hemoglobin 35.1 pg (27.0-33.0); Mean Corpuscular Volume 106.8 fL (80.0-98.0); NRBC Abs Auto 0.000 X10*3/uL (0.0-0.012); NRBC Pct Auto 0.0 /100WBC (0.0-0.2); Platelet Count 267 X10*3/uL (160-400); Red Blood Count 3.08 X10*6/uL (4.60-5.80); Reticulocytes Absolute 0.051 X10*6/uL (0.026-0.095); White Blood Count 6.3 X10*3/uL (4.8-10.8)
[2025-03-25 11:46] LABS: B Type Natriuretic Peptide 76 pg/mL (<100)
[2025-03-25 11:56] LABS: Alanine Aminotransferase 12 U/L (0-40); Albumin Level 4.2 g/dL (3.5-5.0); Alkaline Phosphatase 71 U/L (39-117); Anion Gap 12 (12-20); Aspartate Amino Transferase 28 U/L (5-37); Blood Urea Nitrogen 37 mg/dL (9-16); Calcium 9.3 mg/dL (8.4-10.2); Carbon Dioxide 27 mmol/L (22-29); Chloride 107 mmol/L (96-108); Cholesterol 138 mg/dL (<200); Estimated Glomerular Filt Rate 56; HDL Cholesterol 33 mg/dL (>40); Iron 63 mcg/dL (45-160); Percent Iron Saturation 30 % (15-50); Potassium 4.6 mmol/L (3.3-5.1); Sodium 141 mmol/L (135-145); Total Iron Binding Capacity 208 mcg/dL (228-428); Total Protein 7.6 g/dL (6.5-8.0); Triglycerides 107 mg/dL (<150); Unsaturated Iron Binding 145 ug/dL
[2025-03-25 12:06] LABS: Ferritin 227 ng/mL (20-250); Free T4 (Free Thyroxine) 1.00 ng/dL (0.71-1.85); Thyroid Stimulating Hormone 1.45 uIU/mL (0.32-4.0)
[2025-03-25 12:29] LABS: Uric Acid 9.9 mg/dL (3.4-7.0)
[2025-03-25 12:49] LABS: Folate 5.1 ng/mL (> or = 4.0); Vitamin B12 268 pg/mL (200-900)
== END 2025-03-25 08:25 | disposition home or self-care (01) ==
LOC: HO.WFDLDS 08:24
PROVIDERS: Visit Provider Internal Medicine
DX: E78.00 Pure hypercholesterolemia, unspecified (principal); D64.9 Anemia, unspecified
CPT/HCPCS: 36415; 80053; 80061; 82607; 82728; 82746; 83540; 83880; 84439; 84443; 84550; 85025; 85045

== ENCOUNTER 2025-04-08 13:47 | Outpatient (AMB) | payer MEDICARE, OTHER, SELFPAY ==
--- NOTE | 2025-04-08 13:49 | A.OFFVIS_ITS ---
Intake Vital Signs 04/08/25 14:07 Height 5 ft 9 in Weight 183 lb 8 oz BMI 27.1 BP 128/60 Blood Pressure Location Lt brachial Position Sitting Pulse 80 Pulse Source Pulse Oximeter Temp 97.3 F Temp Source Temporal Artery Scan Pulse Oximetry (%) 96 Oxygen Delivery Method Room Air Intake Visit Reasons: awv Allergies No Known Allergies (No Known Allergies*) Allergy (Verified 04/08/25 14:11) Medication List - Last Reconciled 04/08/25 by Bozena Cobb MD albuterol sulfate 90 mcg/actuation (ProAir HFA) 2 puffs inhalation Q4-6H PRN amlodipine-olmesartan 10-40 mg 1 tab PO DAILY atorvastatin 10 mg PO DAILY colchicine take 2 at the first sign of gout attack and may repeat 0.6 mg 1 hour after orally; furosemide (Lasix) 20 mg PO QAM 90 days HPI awv HPI Details 74-year-old overweight male noted 10 lb weight loss with a history of hypertension hypercholesterolemia COPD patient is a smoker recurrent major depression history of congestive heart failure and gout coming in for annual well visit last seen in October 2024. Patient's last colonoscopy was done in December 2020. Review of the notes. Patient's last blood work was done in March 25 revealing anemia to 10.8 and 32.9 macrocytosis with normal platelet and white blood cell count. Electrolytes are normal BUN is 37 with creatinine of 1.26. Sugars normal uric acid 9.9 patient does have enough iron liver function is normal normal BNP cholesterol LDL is 84. Vitamin B12 is 268 low thyroid is normal.. [place] of care cardiology is Gastroenterology Dr. Antonio [place]. stopped alcohol 12/2024 [facility] Medical History Tubular adenoma of colon History of difficult intubation Smoker Guaiac + stool Colon cancer screening Medicare annual wellness visit, initial Renal calculi Abdominal wall hernia Tobacco abuse COPD (chronic obstructive pulmonary disease) Vitamin D deficiency Hypercholesterolemia Hypertension Surgical History History of removal of cyst History of incisional hernia repair S/P laparoscopic-assisted sigmoidectomy History of cataract surgery S/P surgical removal of pilonidal cyst History of inguinal hernia repair Family History Mother No problems noted. Father No problems noted. Social History (Updated 04/08/25 @ 14:36 by Bozena Cobb MD) Housing: House Alcohol intake: current Alcohol intake frequency: 3 or more drinks per day Alcohol type: hard liquor Comment: 2 Q night. changed 2 drinks saturday night (03/2025) Patient Tobacco Use Status: Current everyday Tobacco user Tobacco use type: Cigarette Cigarette Packs Per Day: 0.5 Cigarettes Per Day: 10 Years Smoked: since 18 years old 12 cigaretes a day (03/2025) e-Cigarette/Vaping Use: Never Used Second Hand Smoke Exposure: Yes service: No Current occupational status: retired Cognitive needs: No Hearing needs: No Vision needs: Yes Questionnaire Medicare Wellness Checkup [age] What gender do you identify with?: male During the past 4 weeks, how much have you been bothered by emotional problems such as feeling anxious, depressed, irritable, sad or downhearted, and blue?: slightly During the past 4 weeks, has your physical & emotional health limited your social activities with family, friends, neighbors, or groups?: not at all During the past 4 weeks, how much bodily pain have you generally had?: no pain During the past 4 weeks, was someone available to help you if you needed & wanted help?: no, not at all During the past 4 weeks, what was the hardest physical activity you could do for at least 2 minutes?: moderate Can you get to places out of walking distance without help? (For eg., can you travel alone on buses, taxis or drive your car?): Yes Can you go shopping for groceries or clothes without someone's help?: Yes Can you prepare your own meals?: Yes Can you do your housework without help?: Yes Because of any health problems, do you need the help of another person with your personal care needs such as eating, bathing, dressing or getting around the house?: No Can you handle your own money without help?: Yes During the past 4 weeks, how would you rate your health in general?: very good During the past 4 weeks how have things been going for you?: pretty well Are you having difficulties driving your car?: no Do you always fasten your seat belt when you are in a car?: no During past 4 weeks, have you been bothered by the following: never: Falling or dizzy when standing up, Sexual problems?, Trouble eating well?, Teeth or denture problems?, Problems using the telephone? and Tiredness or fatigue? Have you fallen 2 or more times in the past year?: No Are you afraid of falling?: No Are you a smoker?: yes, but I'm not ready to quit During the past 4 weeks, how many drinks of wine, beer, or other alcoholic beverages did you have?: 2-5 drinks per week Do you exercise for about 20 minutes 3 or more times a week?: no, I usually do not exercise this much Have you been given information to help with the following?: no: Hazards in your house that might hurt you? and no: Keeping track of your medications? How often do you have trouble taking medicines the way you have been told to take them?: I always take medicine as prescribed How confident are you that you can control & manage most of your health problems?: somewhat confident What is your race?: White PHQ-9 Over the last 2 weeks, how often have you been bothered by any of the following problems? 1. Little interest or pleasure in doing things: not at all 2. Feeling down, depressed, or hopeless: not at all 3. Trouble falling or staying asleep, or sleeping too much: not at all 4. Feeling tired or having little energy: not at all 5. Poor appetite or overeating: not at all 6. Feeling bad about yourself - or that you are a failure or have let yourself or your family down: not at all 7. Trouble concentrating on things, such as reading the newspaper or watching television: not at all 8. Moving or speaking so slowly that other people could have noticed. Or the o pposite - being so fidgety or restless that you have been moving around a lot more than usual: not at all 9. Thoughts that you would be better off or of hurting yourself in some way: not at all Total score: 0 Depression Screening Interpretation: Negative Depression Screening Done: Yes 68127 - PHQ-9 Billing: Yes Source: Developed by Drs. Krishan Antony, Lissett Odom, Kurt Salmeron and colleagues, with an educational maria fernanda from [employer]. Review of Systems Const Denies poor appetite and Denies weakness Eyes Denies no additional complaints ENT Reports Normal hearing present, Denies dizziness, Denies nasal congestion, Denies tinnitus and Denies sore throat Card Denies chest pain, Denies syncope, Denies rapid heart rate and Denies dyspnea Resp Denies cough and Denies dyspnea GI Denies change in stool character, Reports constipation, Denies diarrhea, Denies nausea and Denies vomiting Denies dysuria and Denies urinary frequency Neuro Reports Normal hearing present, Denies confusion, Denies dizziness, Denies syncope and Denies weakness Psych Denies confusion Physical Exam Vital Signs: Last Vital Signs Temp 97.3 F 04/08/25 14:07 Pulse 80 04/08/25 14:07 BP 128/60 04/08/25 14:07 Pulse Ox 96 04/08/25 14:07 Oxygen Delivery Method Room Air 04/08/25 14:07 BMI result Body Mass Index 27.1 Const General: No confusion Orientation/consciousness: No confusion HEENT Head: Yes normocephalic Ears: external ears normal and TM's normal bilaterally Face and sinus: Yes normal facial exam Mouth: moist mucous membranes Throat: Yes tonsils normal Eyes Conjunctivae: conjunctivae normal Pupils: Equal, round and reactive pupils present and Pupil accommodation reflex normal Direct Ophthalmoscopy: normal light reflex Neck Neck: No lymphadenopathy Thyroid: Thyroid normal Chest Chest palpation & inspection: normal inspection of the chest Resp Effort & Inspection: normal respiratory effort and no audible wheezes Auscultation: clear to auscultation bilaterally, no crackles, no wheezes and lung sounds not diminished Cardio Rate: regular rate Rhythm: regular rhythm Peripheral pulses: radial pulses present and dorsalis pedis present GI Other: guaiac negative mild enlarged prostate Palpation (GI): no masses Auscultation: normal bowel sounds and normoactive bowel sounds Other: inguinal hernia bilateral R> L Skin General skin exam: no rashes or lesions noted Rashes: no rashes Neuro General: No confusion Cranial nerves: Yes Equal, round and reactive pupils present and Yes Normal hearing present Cognition (Neuro): normal cognition Gait exam (Neuro): Normal gait present Motor exam (neuro): 5/5 motor strength present throughout Deep tendon reflexes (DTR's): Right brachioradialis reflex intensity grade: 2+, Left brachioradialis reflex intensity grade: 2+, Right patellar reflex intensity grade: 2+ and Left patellar reflex intensity grade: 2+ Extrem General: No edema Assessment & Plan Assessment & Plan (1) Encounter for subsequent annual wellness visit (AWV) in Medicare patient: Code(s): Z00.00 - Encounter for general adult medical examination without abnormal findings Plan: Patient is advised to eat healthy, keep well hydrated, keep active and have adequate sleep. (2) Tobacco abuse: Comment: 03/2024 5-6 cigarettes a day Code(s): Z72.0 - Tobacco use Plan: Patient is strongly advised to stop smoking! (3) COPD (chronic obstructive pulmonary disease): Code(s): J44.9 - Chronic obstructive pulmonary disease, unspecified Qualifiers: COPD type: emphysema Emphysema type: panlobular Qualified Code(s): J43.1 - Panlobular emphysema Plan: Patient is advised to to stop smoking! (4) Gout attack: Code(s): M10.9 - Gout, unspecified Qualifiers: Gout site: foot Gout etiology: other secondary cause Laterality: unspecified laterality Qualified Code(s): M10.479 - Other secondary gout, unspecified ankle and foot Plan: Please abstain from alcohol, low purine diet please (5) Anemia: Code(s): D64.9 - Anemia, unspecified Qualifiers: Anemia type: unspecified type Qualified Code(s): D64.9 - Anemia, unspecified Plan: Will need to follow-up on this anemia (6) Congestive heart failure with preserved left ventricular function, NYHA class 3: Code(s): I50.30 - Unspecified diastolic (congestive) heart failure Plan: BNP has been negative. Present on furosemide (7) Hypercholesterolemia: Code(s): E78.00 - Pure hypercholesterolemia, unspecified Plan: Avoid fried foods, chicken skin, eggs, butter margarine, pastries and meat. Be it pork or beef they have a lot of cholesterol on atorvastatin LDL goal of less than 100 and triglyceride of less than 150 (8) Hypertension: Code(s): I10 - Essential (primary) hypertension Qualifiers: Hypertension type: essential hypertension Qualified Code(s): I10 - Essential (primary) hypertension Plan: Continue with blood pressure medication. Decrease salt intake and exercise on amlodipine olmesartan and hydrochlorothiazide (9) Recurrent major depression: Code(s): F33.9 - Major depressive disorder, recurrent, unspecified Qualifiers: Active/Remission status: remission status unspecified Qualified Code(s): F33.9 - Major depressive disorder, recurrent, unspecified Plan: Supportive treatment (10) Bilateral inguinal hernia: Code(s): K40.20 - Bilateral inguinal hernia, without obstruction or gangrene, not specified as recurrent Qualifiers: Obstruction and gangrene presence: without obstruction or gangrene Recurrence: recurrent Qualified Code(s): K40.21 - Bilateral inguinal hernia, without obstruction or gangrene, recurrent Plan: Patient declined referral and will continue to monitor for now (11) Skin cancer: Code(s): C44.90 - Unspecified malignant neoplasm of skin, unspecified Plan: Dermatology referral done Orders: Orders Complete Blood Count Auto Diff 2 Months I50.30 - Unspecified diastolic (congestive) heart failure Ferritin 2 Months I50.30 - Unspecified diastolic (congestive) heart failure IRON PROFILE 2 Months I50.30 - Unspecified diastolic (congestive) heart failure Thyroid Stimulating Hormone 2 Months I50.30 - Unspecified diastolic (congestive) heart failure Free T4 (Free Thyroxine) 2 Months I50.30 - Unspecified diastolic (congestive) heart failure Vitamin B12 and Folate 2 Months I50.30 - Unspecified diastolic (congestive) heart failure Comprehensive Met. Panel 2 Months I50.30 - Unspecified diastolic (congestive) heart failure Reticulocyte Count 2 Months I50.30 - Unspecified diastolic (congestive) heart failure Uric Acid 2 Months I50.30 - Unspecified diastolic (congestive) heart failure Referrals Dermatology Referral C44.90 - Unspecified malignant neoplasm of skin, unspecified Medications: New colchicine 0.6 mg PO DAILY 30 tabs 2RF M10.9 - Gout, unspecified allopurinol start 2 weeks after colchicine has been started 100 mg PO DAILY 30 tabs 5RF M10.9 - Gout, unspecified Discontinued colchicine Discontinued Reason: Doctor's Order take 2 at the first sign of gout attack and may repeat 0.6 mg 1 hour after orally; 10 tabs 0RF M10.9 - Gout, unspecified Quality Reporting (2019) Depression/Bipolar (159/160/161/177) PHQ-9: Total score: 0 Coding Level of Care Code Medicare Subsequent (G0439) Diagnoses Encounter for subsequent annual wellness visit (AWV) in Medicare patient Z00.00 Tobacco abuse Z72.0 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 Emphysema type: panlobular Other secondary acute gout of foot, unspecified laterality M10.479 Gout site: foot Gout etiology: other secondary cause Laterality: unspecified laterality Anemia, unspecified type D64.9 Anemia type: unspecified type Congestive heart failure with preserved left ventricular function, NYHA class 3 I50.30 Hypercholesterolemia E78.00 Essential hypertension I10 Hypertension type: essential hypertension Recurrent major depressive disorder, remission status unspecified F33.9 Active/Remission status: remission status unspecified Bilateral recurrent inguinal hernia without obstruction or gangrene K40.21 Obstruction and gangrene presence: without obstruction or gangrene Recurrence: recurrent Skin cancer C44.90 Additional Codes PHQ-9 - 70693 - PHQ-9 Billing: Yes ([id number])
[2025-04-08 14:07] VITALS: BP 128/60; PULSE 80; TEMP 36.3; O2SAT 96; BMI 27.1
--- OUTSIDE RECORDS SUMMARY | 2025-04-08 17:36 | XMS_ITS | Patient Health Record ---
Author Organization [facility] Address [address] [place] [id number] Care Team Providers Care Door Hanger Name Role Phone Bozena Cobb MD Primary [...] Problem Status W/U Status Risk Notes Problem 682751363 Colon cancer screening (Z12.11) Active confirmed Problem 113981978 Abnormal findings in stool (R19.5) Active confirmed Problem 293295401 Anemia, unspecified type (D64.9) Active confirmed Plan Of Treatment Future Test Test Name Order Date COLONOSCOPY 01/26/2015 COLONOSCOPY 12/21/2020 Next Appt Details Provider Name:Jet bradley Jr, 04/29/2025 01:55:00 PM, [address], [address], [place], [address], Insurance Providers Payer Name Payer Address Payer Phone Subscriber Number Group Number Insured Name Patient Relationship to Insured Coverage Start Date Coverage End Date MEDICARE OF [place] [address] [place] [address] [id number] IRIS CASTILLO Self - patient is the insured [facility] [address] [place] [address] [id number] IRIS CASTILLO Self - patient is the insured Medical (General) History Medical History History ICD Code hypertension COPD elevated cholesterol nephrolithiasis vitamin D deficiency Surgical History Surgery Date(Month/Year) hernia repair pilonidal cyst excision cataract-lens implants cyst removal insisional hernia [phone] partilal removal of colon - Dr Borjas 2017
== END 2025-04-08 14:58 | disposition home or self-care (01) ==
LOC: HO.HMCH 13:48
PROVIDERS: PCP Internal Medicine; Visit Provider Internal Medicine
DX: Z00.00 Encounter for general adult medical examination without abnormal findings (principal); J43.1 Panlobular emphysema; I11.0 Hypertensive heart disease with heart failure; I50.30 Unspecified diastolic (congestive) heart failure; Z72.0 Tobacco use; M10.479 Other secondary gout, unspecified ankle and foot; D64.9 Anemia, unspecified; E78.00 Pure hypercholesterolemia, unspecified; F33.9 Major depressive disorder, recurrent, unspecified; K40.21 Bilateral inguinal hernia, without obstruction or gangrene, recurrent; C44.90 Unspecified malignant neoplasm of skin, unspecified

== ENCOUNTER → 2025-04-08 13:47 | Outpatient (BNVA) | payer MEDICARE, OTHER, SELFPAY | PROVIDERS: PCP Internal Medicine; Visit Provider Internal Medicine | DX: Z00.00 Encounter for general adult medical examination without abnormal findings (principal); J43.1 Panlobular emphysema; E78.00 Pure hypercholesterolemia, unspecified; J44.9 Chronic obstructive pulmonary disease, unspecified; I11.0 Hypertensive heart disease with heart failure; I50.9 Heart failure, unspecified; M10.479 Other secondary gout, unspecified ankle and foot; D64.9 Anemia, unspecified; I50.30 Unspecified diastolic (congestive) heart failure; F33.9 Major depressive disorder, recurrent, unspecified; K40.21 Bilateral inguinal hernia, without obstruction or gangrene, recurrent; C44.90 Unspecified malignant neoplasm of skin, unspecified; M10.9 Gout, unspecified; F17.210 Nicotine dependence, cigarettes, uncomplicated | CPT/HCPCS: 96127 ==

== ENCOUNTER 2025-05-21 07:24 | Day surgery (SDC) | payer MEDICARE, OTHER, SELFPAY ==
[2025-05-19 10:39] VITALS: BMI 28.0
--- NOTE | 2025-05-19 10:44 | HO.ANESPROP2 ---
Documented by User: Syeda Vasquez NP 05/19/25 11:11 HPI - Anesthesia Eval Consult details Narrative: 74yo M for Colonoscopy *Hx DI* 2023 [facility] [place] [facility] [place] d/t edema/CHF - echo and stress ok. Has only had f/u with PCP [facility] Active Problems Active Problems: All Active Problems Skin cancer (Acute) Bilateral inguinal hernia (Acute) Congestive heart failure with preserved left ventricular function, NYHA class 3 (Acute) Gout attack (Acute) Bursitis of hip, right (Acute) COVID-19 virus infection (Acute) Low vitamin B12 level (Acute) Dermatitis (Acute) Non-healing wound (Acute) Sinus infection (Acute) Hip pain, right (Acute) Encounter for subsequent annual wellness visit (AWV) in Medicare patient (Acute) Recurrent major depression (Acute) Anemia (Acute) Tobacco abuse (Acute) COPD (chronic obstructive pulmonary disease) (Acute) Hypercholesterolemia (Acute) Hypertension (Acute) Past Medical History Medical History CHF (congestive heart failure) Tubular adenoma of colon History of difficult intubation Smoker Renal calculi Abdominal wall hernia Tobacco abuse COPD (chronic obstructive pulmonary disease) Vitamin D deficiency Hypercholesterolemia Hypertension Family History Family History Mother No problems noted. Father No problems noted. Surgical History Surgical History History of removal of cyst History of incisional hernia repair S/P laparoscopic-assisted sigmoidectomy History of cataract surgery S/P surgical removal of pilonidal cyst History of inguinal hernia repair Social History Social History Housing: House Alcohol intake: current Alcohol intake frequency: 3 or more drinks per day Alcohol type: hard liquor Comment: 2 Q night. changed 2 drinks saturday night (03/2025) Patient Tobacco Use Status: Current everyday Tobacco user Tobacco use type: Cigarette Cigarette Packs Per Day: 0.5 Cigarettes Per Day: 10 Years Smoked: since 18 years old 12 cigaretes a day (03/2025) e-Cigarette/Vaping Use: Never Used Second Hand Smoke Exposure: Yes Advance Directives: No Advance Directives Information Provided: Yes service: No Current occupational status: retired Cognitive needs: No Hearing needs: No Vision needs: Yes Meds Allergies Allergy/AdvReac Type Severity Reaction Status Date / Time No Known Allergies (No Known Allergy Verified 05/21/25 07:43 Allergies*) Exam Height,Weight and Vital Signs: Height 5 ft 8 in Weight 83.642 kg Pertinent Lab Results Pertinent Lab Results: Laboratory Tests 03/25/25 08:20 WBC 6.3 Hgb 10.8 L Hct 32.9 L Plt Count 267 Sodium 141 Potassium 4.6 Chloride 107 Carbon Dioxide 27 BUN 37 H Creatinine 1.26 Laboratory Tests 03/25/25 08:27 B-Natriuretic Peptide 76 Narrative Narrative: ECHO 2023 Conclusions: - 1. Normal LV ejection fraction at 55-60% with mildly dilated left ventricle with impaired relaxation filling pattern 2. Normal cardiac valvular Doppler 3. Normal RV systolic pressure 4. No gross pericardial effusion NM cardiolite stress test 2023 Impression: 1. Myocardial perfusion imaging study shows likely normal myocardial perfusion 2. Gated LVEF is 41% 3. Transient ischemic dilatation not present but LV cavity is dilated Assessment and Plan Assessment Anesthesia Assessment: Chart Reviewed Documented by User: Radha Taveras MD 05/21/25 08:20 [facility] Past Medical History Medical History CHF (congestive heart failure) Tubular adenoma of colon History of difficult intubation Smoker Renal calculi Abdominal wall hernia Tobacco abuse COPD (chronic obstructive pulmonary disease) Vitamin D deficiency Hypercholesterolemia Hypertension Family History Family History Mother No problems noted. Father No problems noted. Surgical History Surgical History History of removal of cyst History of incisional hernia repair S/P laparoscopic-assisted sigmoidectomy History of cataract surgery S/P surgical removal of pilonidal cyst History of inguinal hernia repair History of Problems with Anesthesia: No Social History Social History Housing: House Alcohol intake: current Alcohol intake frequency: 3 or more drinks per day Alcohol type: hard liquor Comment: 2 Q night. changed 2 drinks saturday night (03/2025) Patient Tobacco Use Status: Current everyday Tobacco user Tobacco use type: Cigarette Cigarette Packs Per Day: 0.5 Cigarettes Per Day: 10 Years Smoked: since 18 years old 12 cigaretes a day (03/2025) e-Cigarette/Vaping Use: Never Used Second Hand Smoke Exposure: Yes Advance Directives: No Advance Directives Information Provided: Yes service: No Current occupational status: retired Cognitive needs: No Hearing needs: No Vision needs: Yes Meds Allergies Allergy/AdvReac Type Severity Reaction Status Date / Time No Known Allergies (No Known Allergy Verified 05/21/25 07:43 Allergies*) Exam Airway Mallampati Class: III TM Dist: >3cm Neck ROM: Full Loose/Missing/Broken Teeth: No Heart: RRR Lungs: CTA Assessment and Plan Assessment Anesthesia Assessment: Anesthesia Plan Discussed Final Anesthetic Review History of Problems with Anesthesia: No NPO: Yes ASA Class: III Final Preanesthetic Review: Meds/Allgs Chart Reviewed, Consent Obtained/Reviewed and Anes Risks/Benef Reviewed Patient Risk: Intermediate Procedure Risk: Low Anesthetic Plan Anesthetic Plan: MAC: Disposition: Standard PACU
[2025-05-21 07:42] VITALS: BMI 28.0
[2025-05-21] MEDS: Lactated Ringers 1,000 ML 50 ML IVCONT (07:58)
[2025-05-21 07:59] VITALS: BP 120/55; PULSE 75; RESP 18; TEMP 36.7; O2SAT 96
--- NOTE | 2025-05-21 08:24 | MHC.SHP ---
Pre-Procedural Eval Section A - 24 Hr Update-Section A only Date of Service: 05/21/25 The patient is an INPATIENT: No Changes since office visit: No Cold of Flu in the past 2 weeks, No New Medical Problems, No Changes in Medication and No Patient answered all questions The patient has been examined within 24 hours of the surgical procedure. The History & Physical has been completed within 30 days and I have reviewed it.: Yes Section B - Complete if H&P > 30 days Chief Complaint: screening Allergies: Allergies Allergy/AdvReac Type Severity Reaction Status Date / Time No Known Allergies (No Known Allergy Verified 05/21/25 07:43 Allergies*) Plan I have reviewed the history and physical and performed a pertinent physical examination on my patient. No changes have occurred unless specified. Time Spent With Patient Time: Total time managing care of this patient today ____ minutes.
[2025-05-21 08:57] VITALS: BP 89/64; PULSE 56; RESP 16; TEMP 36.2; O2SAT 94
[2025-05-21 09:00] VITALS: BP 90/48; PULSE 53; RESP 20; O2SAT 96
--- NOTE | 2025-05-21 09:10 | OP_ITS ---
DATE OF SERVICE: 05/21/2025 SURGEON: Jet Alvarez MD INDICATIONS: Colon cancer screening and prior history of adenomatous colon polyps. PREOPERATIVE DIAGNOSIS: POSTOPERATIVE DIAGNOSIS: PROCEDURE PERFORMED: Colonoscopy to the terminal ileum with biopsy. ESTIMATED BLOOD LOSS: COMPLICATIONS: ANESTHESIA: Monitored anesthesia care. ASSISTANTS: SPECIMENS: DESCRIPTION OF PROCEDURE: A history and physical was performed. The risks and benefits of the procedure were explained to the patient, and informed consent was obtained. The patient was placed in the left lateral decubitus position. A digital rectal exam was performed and was found to be normal. The Olympus pediatric video colonoscope was introduced into the rectum and advanced to the cecum. The cecum was identified by transillumination, palpation, and identification of ileocecal valve. Examination was performed. The scope was removed. He tolerated the procedure well and was returned to the recovery area in stable condition. FINDINGS: The terminal ileum was normal. The visualized colonic mucosa was normal. There were 2 polyps identified and removed with biopsy forceps. Both measured less than 5 mm and were located at 60 cm. There was mild sigmoid diverticulosis. Retroflexed examination was remarkable for small internal hemorrhoids. IMPRESSION: Colon polyps. RECOMMENDATION: Follow up the biopsy results. MD DARRYL Alvarez/PASHA / [id number]
== END 2025-05-21 09:28 | disposition home or self-care (01) ==
PROVIDERS: PCP Internal Medicine; Visit Provider Internal Medicine Gastroenterology
PROC: 0DJD8ZZ Inspection of Lower Intestinal Tract, Via Natural or Artificial Opening Endoscopic (ICD-10-PCS; CPT 45378; principal; 2025-05-21 09:20)
DX: Z12.11 Encounter for screening for malignant neoplasm of colon (principal); Z86.0101 Personal history of adenomatous and serrated colon polyps; D12.4 Benign neoplasm of descending colon; K57.30 Diverticulosis of large intestine without perforation or abscess without bleeding; K64.8 Other hemorrhoids; I10 Essential (primary) hypertension; E78.00 Pure hypercholesterolemia, unspecified; J44.9 Chronic obstructive pulmonary disease, unspecified; E55.9 Vitamin D deficiency, unspecified; Z87.442 Personal history of urinary calculi; Z79.899 Other long term (current) drug therapy; Z90.49 Acquired absence of other specified parts of digestive tract; F17.210 Nicotine dependence, cigarettes, uncomplicated
CPT/HCPCS: 45380; 88305; J2371; J2704

== ENCOUNTER 2025-06-03 13:10 | Outpatient (REF) | payer MEDICARE, OTHER, SELFPAY ==
--- NOTE | ~2025-06-03 | XR_ITS ---
EXAMINATION: XR CHEST CLINICAL INFORMATION: R05.9 - Cough, unspecified COMPARISON: 12/16/2023. TECHNIQUE: 2 views of the chest were obtained. FINDINGS: The cardiac, hilar, and mediastinal contours are normal. Aortic mural calcifications. Lungs are diffusely hyperaerated with flattened hemidiaphragms suggesting COPD. No focal opacities. No effusion or pneumothorax. There is no focal osseous or soft tissue abnormality. XR/XR chest 2V IMPRESSION: Findings suggestive of COPD. No active superimposed disease. Electronically signed by: Gilbert Abdi MD 06/03/2025 01:53 PM EST
== END 2025-06-03 13:11 | disposition home or self-care (01) ==
LOC: HO.HMGCX 13:10
PROVIDERS: PCP Internal Medicine; Visit Provider Physician Assistant
DX: J44.1 Chronic obstructive pulmonary disease with (acute) exacerbation (principal)
CPT/HCPCS: 71046; 99212

== ENCOUNTER 2025-06-03 13:10 | Outpatient (AMB) | payer MEDICARE, OTHER, SELFPAY ==
--- OUTSIDE RECORDS SUMMARY | 2025-05-21 04:20 | XMS_ITS ---
Author Organization [facility] Address [address] [place] [phone] Care Team Providers Care Tariff Counsel Name Role Phone Bozena Cobb MD Primary Care Provider Jet Mercado Jr REASON FOR VISIT screening Encounters Encounter Location Date Provider Diagnosis [facility] Outpatient [address] [place] [id number] 05/21/2025 Jet Alvarez Jr Plan Of Treatment No Information Progress Notes * IRIS CASTILLO EDOB:1950 (74 yo M)Acc No.[id number]:05/21/2025 COLON WITH MAC Patient: IRIS HAYS Provider: Enma Alvarez MD :1950 A ge:74 Y S ex:Male Date:05/21/2025 Address:[address] [place], [place] [id number] Pcp:Bozena Cobb MD Subjective: * Chief Complaints: * 1 . Screening. * Medical History: Objective: * Vitals: Assessment: Plan: * Treatment: * * The named appointment provid er may or may not be the originator of this progress note, and it is not deemed complete until electronically signed by the appointment provider. Sign off status: Pending * Provider: Enma Alvarez MD Date: Generated for Printi ng/Faxing/eTransmitting on: 08/03/2024 04:00 PM EST
[2025-06-03 13:17] VITALS: BP 114/76; PULSE 73; RESP 16; TEMP 36.5; O2SAT 95; BMI 28.0
--- NOTE | 2025-06-03 13:17 | MHC.OFFWIV ---
Intake Vital Signs 06/03/25 13:17 Height 5 ft 8 in Weight 184 lb BMI 28.0 BP 114/76 Blood Pressure Location Lt brachial Position Sitting Respiration 16 Pulse 73 Pulse Source Pulse Oximeter Temp 97.7 F Temp Source Oral Pulse Oximetry (%) 95 Oxygen Delivery Method Room Air Intake Visit Reasons: EP-upper back pain Intake Note: pt presents with pain from right chest around to right upper back x5 days- pt denies injury or rash- reports h/o COPD. Currently taking Amoxicillin 500mg 1 cap TID for right rib pain- rx purchased out of pocket in [place] Patient Tobacco Use Status: Current everyday Tobacco user Allergies No Known Allergies (No Known Allergies*) Allergy (Verified 06/03/25 13:20) Do you need a note to return to daycare/school/sports/work: No HPI HPI Comments History of Present Illness Details History - The patient is a 74-year-old male presenting with upper back pain and right sided chest pain. - The patient reports pain in the upper back region, which is exacerbated by movement of the right arm and shoulder. - The patient has a history of COPD but does not use an inhaler regularly and denies shortness of breath. - The patient experienced edema in the legs a few years ago, which was managed with Lasix, and has not had issues since. - Today, he denies cough, congestion, sore throat, fevers, head congestion, ear pain or sinus pain. - Pt has been self treating with Amoxicillin 500mg TID for one day, that he obtained in [place]. Review of Systems - Respiratory: Reports wheezing and pain on deep breathing. Denies shortness of breath and cough. - Cardiovascular: Denies chest pain or palpitations. - Musculoskeletal: Reports upper back pain exacerbated by movement. All systems reviewed and are unremarkable except as noted in HPI Physical Exam General: Cooperative, healthy appearing, comfortable and no acute distress Orientation/consciousness: Patient oriented x3 Limitations: No limitations Head: Normal to inspection Ears: Hearing grossly normal bilaterally, external ears normal, EAC's normal bilaterally and TM's normal bilaterally Nose: Normal external nose present, Normal nares present and No nasal discharge present Face and sinus: Normal facial exam and sinuses nontender Mouth: Normal oral and palatal mucosa present and moist mucous membranes Throat: Tonsils normal, no exudates, uvula midline, posterior oropharynx erythema Eyes: Appearance normal, both eyes and all related structures Neck: Normal visual inspection, full ROM Chest: no TTP right chest wall Respiratory: exp wheezes bilaterally, some slight rhonchi at bases. Normal respiratory effort, able to speak in complete sentences, not actively coughing, no respiratory distress, not tachypneic, no tripod positioning and no use of accessory muscles. Cardiovascular: Regular rate and rhythm. Normal S1 and S2. Skin: No rashes or lesions noted Neuro: Patient oriented x3 Back: no TTP right thoracic area into right flank. Extremities: Normal to inspection and Yes no clubbing, cyanosis or edema. [facility] Medical History CHF (congestive heart failure) Tubular adenoma of colon History of difficult intubation Smoker Renal calculi Abdominal wall hernia Tobacco abuse COPD (chronic obstructive pulmonary disease) Vitamin D deficiency Hypercholesterolemia Hypertension Surgical History History of removal of cyst History of incisional hernia repair S/P laparoscopic-assisted sigmoidectomy History of cataract surgery S/P surgical removal of pilonidal cyst History of inguinal hernia repair Family History Mother No problems noted. Father No problems noted. Social History Housing: House Alcohol intake: current Alcohol intake frequency: 3 or more drinks per day Alcohol type: hard liquor Comment: 2 Q night. changed 2 drinks saturday night (03/2025) Patient Tobacco Use Status: Current everyday Tobacco user Tobacco use type: Cigarette Cigarette Packs Per Day: 0.5 Cigarettes Per Day: 10 Years Smoked: since 18 years old 12 cigaretes a day (03/2025) e-Cigarette/Vaping Use: Never Used Second Hand Smoke Exposure: Yes service: No Current occupational status: retired Cognitive needs: No Hearing needs: No Vision needs: Yes Physical Exam Vital Signs: Last Vital Signs Temp 97.7 F 06/03/25 13:17 Pulse 73 06/03/25 13:17 Resp 16 06/03/25 13:17 BP 114/76 06/03/25 13:17 Pulse Ox 95 06/03/25 13:17 Oxygen Delivery Method Room Air 06/03/25 13:17 BMI result Body Mass Index 28.0 Assessment & Plan Assessment & Plan (1) COPD with acute exacerbation: Code(s): J44.1 - Chronic obstructive pulmonary disease with (acute) exacerbation Plan: Plan Patient was informed and verbally consented to the use of an ambient scribe for clinic note documentation during this visit. - VSS, pt well appearing and PE remarkable for exp wheezes and slight rhonchi at bases. - Consideration for musculoskeletal origin however it was not reproducible; advised to monitor symptoms and seek further evaluation if pain persists or worsens. - Prescribed prednisone to manage wheezing and advised to use inhaler as needed. - Ordered chest x-ray to evaluate for possible pneumonia. Orders: Orders XR chest 2V Today R05.9 - Cough, unspecified Medications: New prednisone 40 mg (2 x 20 mg) PO QAM 10 tabs 0RF Coding Level of Care Code Est Pt Level 4 (78771) Diagnoses COPD with acute exacerbation J44.1
--- OUTSIDE RECORDS SUMMARY | 2025-06-03 16:00 | XMS_ITS | Patient Health Record ---
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 the day before the procedure; Duration: 1 day 12/21/2020 Not-Taking amLODIPine-Olmesartan 10-40 MG Orally Active Atorvastatin Calcium 10 MG Orally Active hydroCHLOROthiazide 25 MG Orally Not-Taking Furosemide 20 MG 1 tablet Orally Once a day Active Allopurinol 100 MG 1 tablet Orally Once a day Active Colchicine 0.6 MG 1 tablet Orally Active Immunizations Vaccine Route Administration Date Status Comme nts Influenza Unknown 05/29/2020 Administered Influenza Unknown 04/29/2024 Administered Social History Tobacco Use: Social History Observation Description Date Details (start date - stop date) Current Smoker NA - NA Tobacco Use/Smoking Question Answer Notes Patient is a current smoker How often do you smoke cigarettes? every day How many cigarettes a day do you smoke? 11-20 AUDIT-C (Standard) Question Answer Notes Did you have a drink contain ing alcohol in the past year? Yes How often did you have a dri nk containing alcohol in the past year? 2 to 4 times a month (2 points) How many drinks did you have on a typical day when you were drinking in the past year? 1 or 2 drinks (0 point) How often did you have six o r more drinks on one occasion in the past year? 2 to 3 times per week (3 points) Points 5 Interpretation Positive Problems Problem Type SNOMED Code ICD Code Onset Dates Problem Status W/U Status Risk Notes Problem Colon cancer screening (856441763) Colon cancer screening (Z12.11) Active confirmed Problem Abnormal feces (761561383) Abnormal findings in stool (R19.5) Active confirmed Problem Long-term current use of drug therapy (344514922) Encounter for long-term (current) use of high-risk medication (Z79.899) Active confirmed Problem Anemia (759233640) Anemia, unspecified type (D64.9) Active confirmed Vital Signs Temperature 98.4 degrees Fahrenheit 04/29/2025 Blood pressure diastolic 01 mm Hg 04/29/2025 Height 68 in 04/29/2025 Blood pressure systolic 001 mm Hg 04/29/2025 Weight 184.4 lbs 04/29/2025 BMI 28.03 kg/m2 04/29/2025 Procedures Procedure Date Ordered Date Performed Result Body Sit e COLONOSCOPY 04/29/2025 N/A Encounters Encounter Location Date Provider Diagnosis [facility] [address] [place] [id number] 05/21/2025 Jet Alvaerz Jr [facility] [address] [place] [phone] 04/29/2025 Jet Alvarez Jr Colon cancer screening Z12.11 and Encounter for long-term (current) use of high-risk medication Z79.899 [facility] [address] [place] [phone] 05/18/2025 Jet Alvarez Jr [facility] [address] [place] [phone] 05/26/2025 Jet Alvarez Jr Assessments Encounter Date Diagnosis (ICD Code) Assessment Notes Treatment Notes Treatment Clinical Notes Section Notes 04/29/2025 Colon cancer screening (ICD-10 - Z12.11) We discussed colonoscopy today. We discussed risks and benefits of the procedure today. He understands these and agrees to proceed. He is advised to stop taking furosemide the day before the procedure. 04/29/2025 Encounter for long-term (current) use of high-risk medication (ICD-10 - Z79.899) We discussed colonoscopy today. We discussed risks and benefits of the procedure today. He understands these and agrees to proceed. He is advised to stop taking furosemide the day before the procedure. Plan Of Treatment Pending Test Test Name Order Date COLONOSCOPY 04/29/2025 Future Test Test Name Order Date COLONOSCOPY 01/26/2015 COLONOSCOPY 12/21/2020 Insurance Providers Payer Name Payer Address Payer Phone Subscriber Number Group Number Insured Name Patient Relationship to Insured Coverage Start Date Coverage End Date MEDICARE OF [place] [address] [place] [address] [id number] IRIS CASTILLO Self - patient is the insured [facility] [address] [place] [address] [id number] IRIS CASTILLO Self - patient is the insured Medical (General) History Medical History History ICD Code hypertension COPD elevated cholesterol nephrolithiasis vitamin D deficiency Surgical History Surgery Date(Month/Year) Sigmoid resection for benign polyp 2017 insisional hernia x2 [phone] cyst removal cataract-lens implants pilonidal cyst excision hernia repair
== END 2025-06-03 13:56 | disposition home or self-care (01) ==
PROVIDERS: PCP Internal Medicine; Visit Provider Physician Assistant
DX: J44.1 Chronic obstructive pulmonary disease with (acute) exacerbation (principal)

== ENCOUNTER → 2025-06-03 13:40 | Outpatient (BNV) | payer MEDICARE, OTHER, SELFPAY | PROVIDERS: PCP Internal Medicine; Visit Provider Radiology Diagnostic Radiology | DX: R05.9 Cough, unspecified (principal) | CPT/HCPCS: 71046 ==

== ENCOUNTER 2025-06-08 15:12 | Outpatient (AMB) | payer MEDICARE, OTHER, SELFPAY ==
--- OUTSIDE RECORDS SUMMARY | 2025-05-21 04:20 | XMS_ITS ---
Author Organization [facility] Address [address] [place] [phone] Care Team Providers Care Log Grader Name Role Phone Bozena Cobb MD Primary Care Provider Jet Mercado Jr REASON FOR VISIT screening Encounters Encounter Location Date Provider Diagnosis [facility] [place] [address] [place] [phone] 05/21/2025 Jet Alvarez Jr Plan Of Treatment No Information Progress Notes * IRIS CASTILLO EDOB:1950 (74 yo M)Acc No.[id number]:05/21/2025 COLON WITH MAC Patient: IRIS HAYS Provider: Enma Alvarez MD :1950 A ge:74 Y S ex:Male Date:05/21/2025 Address:[address] [place], [place] [phone] Pcp:Bozena Cobb MD Subjective: * Chief Complaints: [...] MD Date: Generated for Printi ng/Faxing/eTransmitting on: 08/08/2024 04:56 PM EST
--- NOTE | 2025-06-08 15:20 | MHC.PC.OV ---
Vital Signs 06/08/25 15:21 Height 5 ft 8 in Weight 187 lb 4 oz BMI 28.5 BP 120/60 Blood Pressure Location Lt brachial Position Sitting Pulse 74 Pulse Source Pulse Oximeter Temp 97.5 F Temp Source Temporal Artery Scan Pulse Oximetry (%) 94 Oxygen Delivery Method Room Air Intake Visit Reasons: COPD follow up Intake Note: Patient is here to follow up on COPD. Coordinator Volunteer Services Required: No Associate Professor Of Radiology: Not Required per policy Accompanied by: Self / Same As Patient Allergies No Known Allergies (No Known Allergies*) Allergy (Verified 06/08/25 15:40) Medication List - Last Reconciled 06/08/25 by Rick Rhoades PA-C allopurinol 100 mg PO DAILY amlodipine-olmesartan 10-40 mg 1 tab PO DAILY atorvastatin 10 mg PO DAILY colchicine 0.6 mg PO DAILY furosemide (Lasix) 20 mg PO QAM 90 days prednisone 40 mg (2 x 20 mg) PO QAM Tobacco use date assessed: 06/08/25 Fall risk assessment: No Falls in past year Last assessed Fall Risk: 06/08/25 Dental Screening Dental Screen Date: 11/16/24 HPI COPD follow up HPI Details The patient is a 74-year-old male presenting for evaluation of persistent left-sided back pain. The pain began approximately one and a half weeks ago without any preceding injury or fall. Due to concern, he visited an urgent care clinic where a chest X-ray was performed, which showed findings suggestive of COPD but no evidence of pneumonia. He was prescribed a 5-day course of prednisone, which he has completed, but reports only slight improvement with significant pain remaining. The patient has a history of COPD but does not use an inhaler and denies current breathing problems. He is a current smoker, though he has reduced his intake to two cigarettes per day. He denies any fevers or a significant increase in cough. [facility] Medical History (Updated 06/08/25 @ 16:00 by Rick Rhoades PA-C) CHF (congestive heart failure) Tubular adenoma of colon History of difficult intubation Smoker Renal calculi Abdominal wall hernia Tobacco abuse COPD (chronic obstructive pulmonary disease) Vitamin D deficiency Hypercholesterolemia Hypertension Surgical History History of colonoscopy History of removal of cyst History of incisional hernia repair S/P laparoscopic-assisted sigmoidectomy History of cataract surgery S/P surgical removal of pilonidal cyst History of inguinal hernia repair Family History Mother No problems noted. Father No problems noted. Social History Housing: House Alcohol intake: current Alcohol intake frequency: 3 or more drinks per day Alcohol type: hard liquor Comment: 2 Q night. changed 2 drinks saturday night (03/2025) Patient Tobacco Use Status: Current everyday Tobacco user Tobacco use type: Cigarette Cigarette Packs Per Day: 0.5 Cigarettes Per Day: 10 Years Smoked: since 18 years old 12 cigaretes a day (03/2025) Packs Per Year: 0 Packs per year/per ci.00 e-Cigarette/Vaping Use: Never Used Second Hand Smoke Exposure: Yes service: No Current occupational status: retired Cognitive needs: No Hearing needs: No Vision needs: Yes Questionnaire Thrive Questionnaire Date Thrive assessed: 11/16/24 SHAMEKA-7 AMB Questionnaire SHAMEKA-7 Date SHAMEKA - 7 assessed: 11/16/24 Source: Developed by Drs. Krishan Antony, Lissett Odom, Kurt Salmeron and colleagues, with an educational maria fernanda from [employer]. Review of Systems Const Denies headache(s) Eyes Denies loss of vision ENT Denies vertigo, Denies dizziness, Denies headache(s) and Denies sore throat Card Denies chest pain, Denies leg edema and Denies lightheadedness Resp Denies cough, Denies hemoptysis and Denies wheezing GI Denies abdominal pain, Denies melena, Denies constipation, Denies diarrhea and Denies vomiting Denies dysuria, Denies urinary frequency and Denies urinary urgency Musc Denies arthralgias, Denies joint swelling, Denies numbness and Denies tingling Neuro Denies Abnormal speech present, Denies behavioral changes, Denies vertigo, Denies dizziness, Denies headache(s), Denies loss of vision, Denies memory loss, Denies numbness and Denies tingling Psych Denies anxiety, Denies behavioral changes, Denies depression, Denies memory loss and Denies panic attacks Balta/Lymph Denies easy bleeding and Denies easy bruising Aller/Immun Denies wheezing Physical exam (Primary Care) Vital Signs: Last Vital Signs Temp 97.5 F 06/08/25 15:21 Pulse 74 06/08/25 15:21 BP 120/60 06/08/25 15:21 Pulse Ox 94 06/08/25 15:21 Oxygen Delivery Method Room Air 06/08/25 15:21 BMI result Body Mass Index 28.5 Tobacco/Smoking Status: Tobacco use Status Tobacco use date assessed 06/08/25 06/08/25 15:25 Patient Tobacco Use Status Current everyday Tobacco 06/08/25 15:25 Tobacco use type Cigarette 06/08/25 15:25 e-Cigarette/Vaping Use Never Used 06/08/25 15:25 Thrive Assessment: Date of Thrive Assessment Date Thrive assessed 11/16/24 06/08/25 15:25 Const General: healthy appearing, no acute distress, alert and awake Nutritional Appearance: well nourished Orientation/consciousness: oriented to person, oriented to place and oriented to time HENMT Ears: TM's normal bilaterally General nose exam: Normal nasal mucous membranes and turbinates present Eyes Conjunctivae: conjunctivae normal Sclerae: sclerae normal Pupils: Equal, round and reactive pupils present Neck Neck: Yes no lymphadenopathy and Yes no JVD Thyroid: Thyroid normal Carotids: no bruits Resp Other: RHONCHI AND RALES NOTED OVER RIGHT LUNG APPIAH OCCASIONAL COUGH DURING EXAM Effort & Inspection: normal respiratory effort and not tachypneic Auscultation: no crackles, rales, rhonchi and no wheezes Cardio Rate: regular rate Rhythm: regular rhythm Heart sounds: no murmurs and normal S1 and S2 GI Palpation (GI): Soft to palpation, nontender, no hepatomegaly and no splenomegaly Auscultation: normal bowel sounds Skin General skin exam: no rashes or lesions noted and dry skin Neuro General: oriented to person, oriented to place and oriented to time Cranial nerves: Yes Equal, round and reactive pupils present Speech: No Abnormal speech present Gait exam (Neuro): Normal gait present Motor exam (neuro): no tremor noted Extrem Right upper extremity: full ROM Left upper extremity: full ROM Right lower extremity: full ROM; no edema Left lower extremity: full ROM; no edema Psych Mental Status: mental status grossly normal Speech and movement: Normal speech and movement present Affect: normal affect Attitude: cooperative Thought process: Normal thought process present Coding Level of Care Code Est Pt Level 3 (24379) Diagnoses 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 Emphysema type: panlobular Right-sided chest pain R07.9 Tobacco abuse Z72.0 Assessment & Plan Assessment & Plan (1) COPD (chronic obstructive pulmonary disease): Code(s): J44.9 - Chronic obstructive pulmonary disease, unspecified Category: Medical Qualifiers: COPD type: emphysema Emphysema type: panlobular Qualified Code(s): J43.1 - Panlobular emphysema Plan: The patient's persistent right-sided back pain, despite a course of prednisone, raises suspicion for an underlying infectious process such as a walking pneumonia that was not visible on the initial chest X-ray. Therefore, a prescription for azithromycin will be sent to his pharmacy. (2) Right-sided chest pain: Code(s): R07.9 - Chest pain, unspecified Category: Medical Plan: Given the patient's long-term smoking history and the limitations of chest radiography, a CT scan of the chest will be ordered to provide a more detailed evaluation and to rule out other intrathoracic pathology, including malignancy. The order will be placed, and the imaging facility will contact the patient to schedule the appointment after insurance authorization is obtained. (3) Tobacco abuse: Comment: 03/2024 5-6 cigarettes a day Code(s): Z72.0 - Tobacco use Category: Medical Plan: Smoking cessation was encouraged, and the patient acknowledged his efforts in reducing his cigarette intake. Orders: Orders CT chest w IV con 06/08/25 J44.1 - Chronic obstructive pulmonary disease with (acute) exacerbation Basic Metabolic Panel 06/08/25 J44.1 - Chronic obstructive pulmonary disease with (acute) exacerbation Medications: New azithromycin For 250 mg dose pack: take 500 mg today (day 1), then 250 mg for 4 days (days 2-5) PO 6 tabs 0RF J44.1 - Chronic obstructive pulmonary disease with (acute) exacerbation
[2025-06-08 15:21] VITALS: BP 120/60; PULSE 74; TEMP 36.4; O2SAT 94; BMI 28.5
--- OUTSIDE RECORDS SUMMARY | 2025-06-08 16:56 | XMS_ITS | Patient Health Record ---
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 Role Phone Bozena Cobb MD Primary Care Provider Jet Mercado Jr Unavailable Allergies No Known Allergies Results Component Value Reference Range Notes Pathology Reviewed date:05/26/2025 08:14:18 AM Interpretation: Performing Lab:[facility], [address] [place] [phone] Notes/Report: Reason For Referral No Information Medications [...] Status Risk Notes Problem Colon cancer screening (743603800) Colon cancer screening (Z12.11) Active confirmed Problem Abnormal feces (483110558) Abnormal findings in stool (R19.5) Active confirmed Problem Long-term current use of drug therapy (142173086) Encounter for long-term (current) use of high-risk medication (Z79.899) Active confirmed Problem Anemia (863112694) Anemia, unspecified type (D64.9) Active confirmed Vital Signs Temperature 98.4 degrees Fahrenheit 04/29/2025 Blood pressure diastolic 01 mm Hg 04/29/2025 Height 68 in 04/29/2025 Blood pressure systolic 001 mm Hg 04/29/2025 Weight 184.4 lbs 04/29/2025 BMI 28.03 kg/m2 04/29/2025 Procedures Procedure Date Ordered Date Performed Result Body Sit e COLONOSCOPY 04/29/2025 N/A Encounters Encounter Location Date Provider Diagnosis [facility] [address] [place] [id number] 05/21/2025 Jet Alvarez Jr [facility] [address] [place] [phone] 04/29/2025 Jet Alvarez Jr Colon cancer screening Z12.11 and Encounter for long-term (current) use of high-risk medication Z79.899 [facility] [address] [place] [phone] 05/18/2025 eJt Alvarez Jr [facility] [address] [place] [phone] 05/26/2025 Jet Alvarez Jr Assessments Encounter Date [...] Date [place]ARE OF [place] [address] [place] [address] [id number] IRIS CASTILLO Self - patient is the insured [facility] [address] [place] [address] [id number] IRIS CASTILLO Self - patient is the insured Medical (General) History Medical History History ICD Code hypertension COPD elevated cholesterol nephrolithiasis vitamin D deficiency Surgical History Surgery Date(Month/Year) Sigmoid resection for benign polyp 2017 insisional hernia x2 [phone] cyst removal cataract-lens implants pilonidal cyst excision hernia repair
== END 2025-06-08 16:11 | disposition home or self-care (01) ==
LOC: HO.HMCH 15:12
PROVIDERS: PCP Internal Medicine; Visit Provider Physician Assistant
DX: J43.1 Panlobular emphysema (principal); R07.9 Chest pain, unspecified; Z72.0 Tobacco use

== ENCOUNTER → 2025-06-08 15:12 | Outpatient (BNVA) | payer MEDICARE, OTHER, SELFPAY | PROVIDERS: PCP Internal Medicine; Visit Provider Physician Assistant | DX: J43.1 Panlobular emphysema (principal); R07.9 Chest pain, unspecified; Z72.0 Tobacco use | CPT/HCPCS: 99212 ==

== ENCOUNTER 2025-06-14 13:25 | Outpatient (AMB) | payer MEDICARE, OTHER, SELFPAY ==
--- NOTE | 2025-06-14 13:30 | A.OFFPC_ITS ---
Vital Signs 3 06/14/25 13:31 Height 5 ft 8 in Weight 183 lb BMI 27.8 BP 122/62 Blood Pressure Location Lt brachial Position Sitting Pulse 70 Pulse Source Pulse Oximeter Pulse Oximetry (%) 97 Oxygen Delivery Method Room Air Intake Visit Reasons: Cough and breathing issues Allergies No Known Allergies (No Known Allergies*) Allergy (Verified 06/14/25 13:31) Medication List - Last Reconciled 06/14/25 by Bozena Cobb MD allopurinol 100 mg PO DAILY amlodipine-olmesartan 10-40 mg 1 tab PO DAILY atorvastatin 10 mg PO DAILY colchicine 0.6 mg PO DAILY furosemide (Lasix) 20 mg PO QAM 90 days lidocaine 5% 2 patches topical DAILY Tobacco use date assessed: 06/08/25 Fall risk assessment: No Falls in past year Last assessed Fall Risk: 06/14/25 Dental Screening Dental Screen Date: 11/16/24 HPI Cough and breathing issues 2 HPI0 Details R upper back and R nipple tenderness- wheezing - steroids given then antibiotic after - HPI Comments 2 History of Present Illness0 Details History of Present Illness The patient is a 74-year-old overweight male presenting for a follow-up visit for management of chronic conditions. He has a history of COPD, tobacco use, hypertension, hypercholesterolemia, and congestive heart failure. The patient was seen at an urgent care center on June 03 for upper back pain, where he was advised to get a chest x-ray and was prescribed prednisone. He was subsequently seen for a COPD follow-up on June 08, at which time he was advised to get a chest CT scan and was prescribed a Z-Alvin. Despite treatment with Zithromax and steroids, he reports he is not feeling better, and the impression is an acute exacerbation of COPD. A recent chest x-ray revealed COPD. A colon test in April revealed a tubular adenoma. Recent blood work showed anemia with a hemoglobin of 10.8 and hematocrit of 32.9, a low vitamin B12 level of 268, a BNP of 76, LDL of 84, and renal function of 1.26. His electrolytes were noted to be good. Health Maintenance - The patient recently had a colon test in April which was significant for a tubular adenoma. Social History - Tobacco Use: The patient is a tobacco smoker. Results - Labs: - CBC: Hemoglobin 10.8, Hematocrit 32.9, indicating anemia. - BNP: 76. - Chemistry Panel: Electrolytes are good ; renal function is 1.26. - Lipid Panel: LDL is 84. - Vitamin B12: 268 (low). - Imaging: - Chest X-ray: Revealed COPD. - Procedures: - Colon test (April 2024): Revealed a tubular adenoma. [facility] Medical History (Updated 06/14/25 @ 13:46 by Bozena Cobb MD) CHF (congestive heart failure) Tubular adenoma of colon History of difficult intubation Smoker Renal calculi Abdominal wall hernia Tobacco abuse COPD (chronic obstructive pulmonary disease) Vitamin D deficiency Hypercholesterolemia Hypertension Surgical History History of colonoscopy History of removal of cyst History of incisional hernia repair S/P laparoscopic-assisted sigmoidectomy History of cataract surgery S/P surgical removal of pilonidal cyst History of inguinal hernia repair Family History Mother No problems noted. Father No problems noted. Social History Housing: House Alcohol intake: current Alcohol intake frequency: 3 or more drinks per day Alcohol type: hard liquor Comment: 2 Q night. changed 2 drinks saturday night (03/2025) Patient Tobacco Use Status: Current everyday Tobacco user Tobacco use type: Cigarette Cigarette Packs Per Day: 0.5 Cigarettes Per Day: 10 Years Smoked: since 18 years old 12 cigaretes a day (03/2025) Packs Per Year: 0 Packs per year/per ci.00 e-Cigarette/Vaping Use: Never Used Second Hand Smoke Exposure: Yes service: No Current occupational status: retired Cognitive needs: No Hearing needs: No Vision needs: Yes Questionnaire PHQ-9 Over the last 2 weeks, how often have you been bothered by any of the following problems? 1. Little interest or pleasure in doing things: nearly every day 2. Feeling down, depressed, or hopeless: nearly every day 3. Trouble falling or staying asleep, or sleeping too much: nearly every day 4. Feeling tired or having little energy: nearly every day 5. Poor appetite or overeating: nearly every day 6. Feeling bad about yourself - or that you are a failure or have let yourself or your family down: several days 7. Trouble concentrating on things, such as reading the newspaper or watching television: several days 8. Moving or speaking so slowly that other people could have noticed. Or the opposite - being so fidgety or restless that you have been moving around a lot more than usual: not at all 9. Thoughts that you would be better off or of hurting yourself in some way: several days Total score: 18 Depression Screening Interpretation: Positive Depression Screening Done: Yes Source: Developed by Drs. Krishan Antony, Lissett Odom, Kurt Salmeron and colleagues, with an educational maria fernanda from [employer] Thrive Questionnaire Date Thrive assessed: 11/16/24 I am a: Patient What is your living situation today?: I have a steady place to live Within the past 12 months, did the food you bought not last and you didn't have the money to get more?: Never true Within the past 12 months, did you worry whether your food would run out before you got money to buy more?: Never true Do you have trouble paying for medicines?: No Do you have trouble getting transportation to medical appointments?: No Do you have trouble paying your heating and electricity bill?: No Do you have trouble taking care of your child, family member or friend?: I choose not to answer this question Do you have trouble with day-to-day activities such as bathing, preparing meals, shopping, managing finances, etc.?: No Are you currently unemployed and looking for a job?: No Are you interested in more education?: No Please select the resources that you would like help with: None Currently or been in a relationship where the following occur: No concerns reported THRIVE Score: 0 AUDIT C Alcohol Use Questionnaire (AUDIT-C) 1. How often do you have a drink containing alcohol?: 2-4 times a month 2. How many drinks containing alcohol do you have on a typical day when you are drinking?: 1 or 2 3. How often do you have six or more drinks on one occasion?: Never Total Score: 2 SHAMEKA-7 AMB Questionnaire SHAMEKA-7 Date SHAMEKA - 7 assessed: 11/16/24 Feeling nervous, anxious, or on edge: 3 = Nearly every day Not being able to stop or control worryin = Nearly every day Worrying too much about different things: 3 = Nearly every day Trouble relaxin = More than half the days Being so restless that it is hard to sit still: 0 = Not at all Becoming easily annoyed or irritable: 1 = Several days Feeling afraid as if something awful might happen: 2 = More than half the days Total SHAMEKA-7 score (0-4 normal; 5-9 mild; 10-14 moderate; 15-21 severe): 14 Source: Developed by Drs. Krishan Antony, Lissett Odom, Kurt Salmeron and colleagues, with an educational maria fernanda from [employer]. Review of Systems Narrative Review of Systems - General: Reports not feeling better despite recent treatment. - Musculoskeletal: Reports upper back pain since June 03. Physical exam (Primary Care) Vital Signs: Last Vital Signs Pulse 70 06/14/25 13:31 BP 122/62 06/14/25 13:31 Pulse Ox 97 06/14/25 13:31 Oxygen Delivery Method Room Air 06/14/25 13:31 BMI result Body Mass Index 27.8 Tobacco/Smoking Status: Tobacco use Status Tobacco use date assessed 06/08/25 06/14/25 13:37 Patient Tobacco Use Status Current everyday Tobacco 06/14/25 13:37 Tobacco use type Cigarette 06/14/25 13:37 e-Cigarette/Vaping Use Never Used 06/14/25 13:37 PHQ-9: PHQ-9 Score PHQ-9: Total score 18 06/14/25 18:14 Depression Screening Interpretation: Positive Thrive Assessment: Date of Thrive Assessment Date Thrive assessed 11/16/24 06/14/25 13:37 Currently or been in a relationship where the following occur: No concerns reported Narrative Physical Exam Const General: alert; No acute distress Eyes Conjunctivae: conjunctivae normal Chest Chest/axillae images: 2 1. multiple red circular 1-2 mm group rash Resp Auscultation: clear to auscultation bilaterally Cardio Rate: regular rate Rhythm: regular rhythm GI Inspection: Yes normal to inspection Extrem General: Yes normal to inspection and No edema Coding Level of Care Code Est Pt Level 3 (36196) Diagnoses Acute exacerbation of COPD with asthma J44.1; J45.901 Shingles B02.9 Assessment & Plan Assessment & Plan (1) Acute exacerbation of COPD with asthma: Code(s): J44.1 - Chronic obstructive pulmonary disease with (acute) exacerbation; J45.901 - Unspecified asthma with (acute) exacerbation Category: Medical Plan: not a problem (2) Shingles: Code(s): B02.9 - Zoster without complications Category: Medical Plan Plan Patient was informed and verbally consented to the use of an ambient scribe for clinic note documentation during this visit. 1. Acute Exacerbation Of Chronic Obstructive Pulmonary Disease The patient presents with an acute exacerbation of COPD, having been seen at an urgent care for upper back pain and for a COPD follow-up. Despite treatment with prednisone and Zithromax, he continues to feel unwell. A chest x-ray confirmed findings of COPD. The patient was previously advised to get a CAT scan of the chest. 2. Tubular Adenoma Of Colon A recent colon test in April revealed a tubular adenoma. 3. Anemia Recent blood work revealed anemia, with a hemoglobin of 10.8 and hematocrit of 32.9. 4. Vitamin B12 Deficiency Labs show a low vitamin B12 level of 268. Discussion Notes We reviewed the patient's recent clinical events, including a visit to an urgent care on June 03 for upper back pain and a subsequent COPD follow-up on June 08. It was noted that despite treatment with prednisone and a Z-Alvin for an acute COPD exacerbation, the patient is not feeling better. We also discussed the plan for a CAT scan of the chest, which had been previously recommended. Patient Instructions - It is recommended that you get a CAT scan of your chest as we previously discussed. Medications: New 2 lidocaine 5% leave on most painful area for up to 12 hrs 2 patches topical DAILY 15 ea 0RF B02.9 - Zoster without complications
[2025-06-14 13:31] VITALS: BP 122/62; PULSE 70; O2SAT 97; BMI 27.8
== END 2025-06-14 13:53 | disposition home or self-care (01) ==
LOC: HO.HMCH 13:26
PROVIDERS: PCP Internal Medicine; Visit Provider Internal Medicine
DX: J44.1 Chronic obstructive pulmonary disease with (acute) exacerbation (principal); J45.901 Unspecified asthma with (acute) exacerbation; B02.9 Zoster without complications

== ENCOUNTER → 2025-06-14 13:25 | Outpatient (BNVA) | payer MEDICARE, OTHER, SELFPAY | PROVIDERS: PCP Internal Medicine; Visit Provider Internal Medicine | DX: J44.1 Chronic obstructive pulmonary disease with (acute) exacerbation (principal); J45.901 Unspecified asthma with (acute) exacerbation; B02.9 Zoster without complications | CPT/HCPCS: 99212 ==